=== PATIENT | male | born 1960 | race Hispanic/Latino ===

== ENCOUNTER 2020-02-08 14:25 | Inpatient (IN) | payer BC, OTHER ==
[2020-02-07 19:07] VITALS: BP 157/91
[~2020-02-08] VITALS: Ht 180.3 cm; Wt 68.9 kg
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
[2020-02-08] MEDS ORDERED: PIPER-TAZ 3.375 GM 50 ML IV ONE (15:30)
--- NOTE | 2020-02-08 15:31 | Emergency Department Note ---
History of Present Illnes History of Present Illness Chief Complaint: Extremity Trauma/Pain History of Present Illness This is a 59 year old male . Historian: Patient Arrival Mode: Car Tile Conduit Layer Required: No Onset (how long ago): day(s) (3) Location: right foot Quality: dull ache Radiation: non-radiation Severity: moderate Onset quality: sudden Duration (how long): day(s) (3) Timing of current episode: constant Progression: worsening Chronicity: new Relieving factors: none Exacerbating factors: none Associated symptoms: denies other symptoms, other Treatments prior to arrival: none (DEVIKA ROLAND NP) Past Medical/Family History Physician Review I have reviewed the patient's past medical and family history. Any updates have been documented here. (DEVIKA ROLAND NP) Past Medical History Recent Fever: No Clinical Suspicion of Infectio: Yes New/Unexplained Change in Ment: No Past Medical History: Hypertension, Diabetes, Kidney Stones Past Surgical History: None (DEVIKA ROLAND NP) Social History Smoking Cessation: Former smoker Alcohol Use: Occasional Any Illegal Drug Use: No TB Exposure/Symptoms: No Physically hurt or threatened: No (DEVIKA ORLAND NP) Other Last Tetanus: unknown Any Pre-Existing Lines (PICC,: No Is patient up to date on immun: Yes Last Flu: none Last Pneumovax: none (DEVIKA ROLAND NP) Review of Systems Review of Systems Constitutional: no symptoms EENTM: no symptoms Cardiovascular: no symptoms Respiratory: no symptoms Gastrointestinal: no symptoms Genitourinary: no symptoms Musculoskeletal: no symptoms Neurological: no symptoms Psychological: no symptoms Endocrine: no symptoms Hematological/Lymphatic: no symptoms Review of other systems Rt foot with multiple ulcers noted (DEVIKA ROLAND NP) Physical Exam Related Data Allergies: Coded Allergies: No Known Allergies (Unverified , 02/08/20) Triage Vital Signs Vital Signs Date Time Temp Pulse Resp B/P (MAP) Pulse Ox O2 Delivery O2 Flow Rate FiO2 02/08/20 14:59 98.1 106 16 166/86 95 (DEVIKA ROLAND NP) Physical Exam CONSTITUTIONAL Constitutional: well-developed, well-nourished HENT HENT: normocephalic, atraumatic, oropharynx clear/moist, nose normal HENT L/R: left ext ear normal, right ext ear normal EYES Eyes: PERRL, conjunctivae normal NECK Neck: ROM normal PULMONARY Pulmonary: effort normal, breath sounds normal CARDIOVASCULAR Cardiovascular: regular rhythm, heart sounds normal, capillary refill normal, normal rate GASTROINTESTINAL Abdominal: soft, nontender, bowel sounds normal GENITOURINARY Genitourinary: exam deferred SKIN Skin: warm, dry, lesion (right heel ulcer, right bottom of foot pad ulcer and ulcer to right lateral aspect of foot that is oozing) MUSCULOSKELETAL Musculoskeletal: ROM normal NEUROLOGICAL Neurological: alert, oriented x 3, no gross motor or sensory deficits PSYCHOLOGICAL Psychological: mood/affect normal, judgement normal (DEVIKA ROLAND NP) Results Laboratory Lab results reviewed: Yes (DEVIKA ROLAND NP) Imaging Imaging results reviewed: Yes (DEVIKA ROLAND NP) Procedures 12 Lead ECG Interpretation Tile Conduit Layer: Interpreted by ED physician Date: February 08, 2020 Time: 15:11 Prior WEIGH BOX TENDER tracings: reviewed Rhythm: sinus tachycardia Clinical Impression: normal ECG (DEVIKA ROLAND NP) Critical Care Time Subsequent provider I assumed direction of critical care for this patient from another provider of my specialty. (DEVIKA ROLAND NP) Assessment & Plan Reassessment Reassessment PATIENT SENT FROM DR FREEDMAN'S OFFICE WITH A NOTE TO ADMIT TO DR WILBURN. (DEVIKA ROLAND NP) Assessment & Plan Final Impression: (1) Diabetic ulcer of left foot Assessment & Plan XRAY TO R/O OSTEO BLOOD WORK TO R/O INFECTION ALL RESULTS DISCUSSED WITH DR GALLOWAY WHO IS SPEAKING TO DR WILBURN ADMISSION ORDERS WRITTEN (DEVIKA ROLAND NP) Depart Disposition: ADMITTED Last Vital Signs Date Time Temp Pulse Resp B/P (MAP) Pulse Ox O2 Delivery O2 Flow Rate FiO2 02/08/20 14:59 98.1 106 16 166/86 95 (DEVIKA ROLAND NP) Medications in the ED Piperacillin Sod/ Tazobactam Sod 50 ml @ 50 mls/hr ONCE ONCE IV ; Start 02/08/20 at 15:30; Stop 02/08/20 at 16:29 Vancomycin HCl 250 ml @ 167 mls/hr ONCE ONCE IV ; Start 02/08/20 at 16:30; Stop 02/08/20 at 17:59 (DEVIKA ROLAND NP) Physician Attestation Provider Attestation The patient's history, exam findings, diagnostics, and a summary of any interven tions or procedures was reviewed in detail with our PATRICIA. I personally interviewed and examined the patient, and I have reviewed and agree with the HPI andexam. My personal exam shows 3 ulcers on left foot - 1 at plantar surface of pads at MTP of 3rd and 4th toes ~4cm, 1 on heel ~4cm, and 2 cm ulceration lateral foot at about the 5th mid-MT. I confirm the diagnosis as documented by the PATRICIA. I have reviewed and agree with the care plan articulated in the disposition section. (CORTNEY GALLOWAY MD) DEVIKA ROLAND NP February 08, 2020 15:31 CORTNEY GALLOAWY MD February 08, 2020 17:25
[2020-02-08 15:44] LABS: BASOPHILS # (AUTO) 0.1 (0.0-0.1); BASOPHILS % 0.5 % (0.0-1.0); EOSINOPHILS % 0.2 % (0.0-6.0); HEMATOCRIT 30.9 % (38.2-49.6); HEMOGLOBIN 9.7 g/dL (14.0-18.0); LYMPHOCYTES # (AUTO) 1.2 (1.0-3.2); LYMPHOCYTES % 5.9 % (18.0-39.1); MEAN CORPUSCULAR HEMOGLOBIN 26.6 pg (28-32); MEAN CORPUSCULAR HGB CONC 31.4 g/dL (31-35); MEAN CORPUSCULAR VOLUME 84.7 fL (81-99); MONOCYTES # (AUTO) 1.2 (0.2-0.8); MONOCYTES % 6.1 % (4.4-11.3); NEUTROPHILS # (AUTO) 16.8 (2.1-6.9); NEUTROPHILS % 86.4 % (38.7-80.0); PLATELET COUNT 500 x10e3/uL (140-360); RED BLOOD COUNT 3.65 x10e6/uL (4.3-5.7); RED CELL DISTRIBUTION WIDTH 14.7 % (11.7-14.4)
--- NOTE | 2020-02-08 15:46 | Diagnostic Imaging Report ---
EXAMINATION: CHEST SINGLE (PORTABLE) INDICATION: Foot ulcer COMPARISON: None FINDINGS: LINES/TUBES:None LUNGS:The lungs are well-inflated. No focal consolidation or pulmonary edema. PLEURA:No pleural effusion or pneumothorax. MEDIASTINUM:The cardiomediastinal silhouette appears normal in size and shape. BONES/SOFT TISSUES:No acute osseous injury. ABDOMEN:No free air under the diaphragm. IMPRESSION: No focal pneumonia or pulmonary edema. Signed by: Venu Guy MD on 02/08/2020 3:42 PM
--- NOTE | 2020-02-08 15:47 | Diagnostic Imaging Report ---
EXAMINATION: FOOT LEFT COMPLETE INDICATION: Foot ulcer COMPARISON: None FINDINGS: Soft tissue swelling and ulceration along the lateral aspect of the midfoot. No underlying acute osseous injury or specific radiographic evidence of osteomyelitis. Minimal Achilles enthesopathy. IMPRESSION: Soft tissue ulceration along the lateral aspect of the midfoot without underlying acute osseous injury or specific radiographic evidence of osteomyelitis. Signed by: Venu Guy MD on 02/08/2020 3:43 PM
[2020-02-08 15:59] LABS: ALANINE AMINOTRANSFERASE 79 IU/L (0-55); ALBUMIN/GLOBULIN RATIO 0.3 (0.8-2.0); ALKALINE PHOSPHATASE 389 IU/L (40-150); ANION GAP 14.6 mmol/L (8-16); BLOOD UREA NITROGEN 8 mg/dL (7-26); BUN/CREATININE RATIO 10 (6-25); CALCIUM 8.6 mg/dL (8.4-10.2); CARBON DIOXIDE 36 mmol/L (22-29); CHLORIDE 87 mmol/L (98-107); CREATINE KINASE 66 IU/L (30-200); CREATININE, SERUM 0.77 mg/dL (0.72-1.25); EST GLOMERULAR FILTRATION RATE > 60 ML/MIN (60-); GLUCOSE 115 mg/dL (74-118); SODIUM 135 mmol/L (136-145)
[2020-02-08 16:01] LABS: POTASSIUM 2.6 mmol/L (3.5-5.1)
[2020-02-08] MEDS ORDERED: POTASSIUM CHLORIDE 20 MEQ TAB CR PO STA (16:26)
[2020-02-08] MEDS ORDERED: VANCOMYCIN 1GM/NS 250 ML 250 ML IV ONE (16:30)
[2020-02-08] MEDS ORDERED: KCL 20MEQ/.9 SOD CHL 1,000 ML IV ONE ×2 (16:30→17:15)
[2020-02-08 16:55] LABS: INR 1.07; PROTHROMBIN TIME 14.6 seconds (11.9-14.5)
[2020-02-08 17:03] LABS: PARTIAL THROMBOPLASTIN TIME 46.2 seconds (23.8-35.5)
[2020-02-08] MEDS ORDERED: ONDANSETRON HCL INJ 2MG/ML 2ML 2 MG/ML VIAL IV PRN (17:15)
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
--- NOTE | 2020-02-08 19:07 | NUR ---
RECEIVED PATIENT TO ROOM FROM ED. PATIENT A&OX3. NO PAIN REPORTED. NO S&S OF DISTRESS NOTED. LUNG SOUNDS CLEAR. BOWEL SOUNDS ACTIVE. L FOOT REDNESS AND MULTIPLE ULCERS NOTED. MD MONTALVO TO SEE PATIENT KOFFI FOR ORDERS. BILATERAL AC 18G IV ASYMPTOMATIC, INTACT, AND PATENT. PATIENT ORIENTED TO ROOM. NO S&S OF DISTRESS NOTED. BED LOCKED IN LOWEST POSITION, SIDE RAILS UPX2, CALL LIGHT IN REACH.
[2020-02-08 19:10] VITALS: BP 157/91
--- NOTE | 2020-02-08 20:00 | NUR ---
SPOKE WITH HUMBERTO ROSALES ABOUT TEMP OF 100.7, DOWN TO 100.1, NO NEW ORDERS FOR FEVER AT THIS TIME.
[2020-02-08] MEDS ORDERED: TRULICITY0.75 MG/0. SQ (20:08)
[2020-02-08] MEDS ORDERED: LOSARTAN POTAS100 MG PO (20:08)
[2020-02-08] MEDS ORDERED: SYNJARDY XR 121 EACH PO (20:08)
[2020-02-08] MEDS ORDERED: NOVOLOG MI100 UNIT/1 SC (20:08)
[2020-02-08] MEDS ORDERED: LIPITOR20 MG PO (20:08)
[2020-02-08 20:58] VITALS: BP 157/91
[2020-02-08] MEDS ORDERED: COLLAGENASE 5 GM TUBE TOP SCH (21:00)
[2020-02-08] MEDS ORDERED: NON-FORMULARY MEDICATION (Dulaglutide (Trulicity) 0.75 MG) SQ SCH (22:15)
[2020-02-08] MEDS: PIPER-TAZ 3.375 GM 50 ML IV SCH (22:55)
[2020-02-09] VITALS (7 sets, daily range): BP systolic 141–166; BP diastolic 73–85
[2020-02-09 00:05] LABS: CREATINE KINASE MB 0.6 ng/mL (0-5.0)
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
--- NOTE | 2020-02-09 01:33 | NUR ---
SPOKE WITH HUMBERTO KENT CONCERNING PATIENT'S TEMPERATURE OF 101.7. ICE PACKS ALREADY APPLIED. NEW ORDER FOR TYLENOL RECEIVED.
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
[2020-02-09] MEDS: ACETAMINOPHEN 325 MG TAB PO PRN (01:55)
[2020-02-09] MEDS: VANCOMYCIN 1GM/NS 250 ML 250 ML IV SCH ×2 (02:30→14:30)
[2020-02-09] MEDS: PIPER-TAZ 3.375 GM 50 ML IV SCH ×4 (05:31→23:03)
[2020-02-09 07:01] LABS: BASOPHILS # (AUTO) 0.1 (0.0-0.1); BASOPHILS % 0.4 % (0.0-1.0); EOSINOPHILS % 0.1 % (0.0-6.0); HEMATOCRIT 25.1 % (38.2-49.6); HEMOGLOBIN 7.9 g/dL (14.0-18.0); LYMPHOCYTES # (AUTO) 1.3 (1.0-3.2); LYMPHOCYTES % 8.4 % (18.0-39.1); MEAN CORPUSCULAR HEMOGLOBIN 26.6 pg (28-32); MEAN CORPUSCULAR HGB CONC 31.5 g/dL (31-35); MEAN CORPUSCULAR VOLUME 84.5 fL (81-99); MONOCYTES # (AUTO) 1.3 (0.2-0.8); MONOCYTES % 7.9 % (4.4-11.3); NEUTROPHILS % 81.8 % (38.7-80.0); PLATELET COUNT 423 x10e3/uL (140-360); RED BLOOD COUNT 2.97 x10e6/uL (4.3-5.7)
[2020-02-09 07:20] LABS: ALANINE AMINOTRANSFERASE 52 IU/L (0-55); ALBUMIN 1.5 g/dL (3.5-5.0); ALBUMIN/GLOBULIN RATIO 0.3 (0.8-2.0); ALKALINE PHOSPHATASE 338 IU/L (40-150); ANION GAP 14.8 mmol/L (8-16); BLOOD UREA NITROGEN 10 mg/dL (7-26); BUN/CREATININE RATIO 14 (6-25); CALCIUM 7.8 mg/dL (8.4-10.2); CARBON DIOXIDE 26 mmol/L (22-29); CHLORIDE 97 mmol/L (98-107); CREATININE, SERUM 0.71 mg/dL (0.72-1.25); EST GLOMERULAR FILTRATION RATE > 60 ML/MIN (60-); GLUCOSE 122 mg/dL (74-118); SODIUM 135 mmol/L (136-145)
[2020-02-09 07:23] LABS: POTASSIUM 2.8 mmol/L (3.5-5.1)
--- NOTE | 2020-02-09 07:25 | NUR ---
PATIENT IN BED RESTING WITH NO S/S OF DISTRESS. DRESSING TO LEFT FOOT WITH MODERATE AMOUNT OF DRAINAGE. BED IN LOWER POSITION, CALL LIGHT AT REACH.
[2020-02-09 07:31] LABS: CREATINE KINASE 40 IU/L (30-200)
[2020-02-09 08:00] LABS: CHOL/HDL RATIO 5.2 (3.9-4.7); MAGNESIUM 2.3 MG/DL (1.3-2.1); PHOSPHORUS 3.6 MG/DL (2.3-4.7)
[2020-02-09] MEDS: INSULIN ASPART 70/30 100 UNITS/ML VIAL SC SCH ×2 (08:00→17:00)
--- NOTE | 2020-02-09 08:17 | Diagnostic Imaging Report ---
EXAMINATION: CHEST SINGLE (PORTABLE) INDICATION: Hypokalemia, foot injury COMPARISON: Chest radiograph 02/08/2020 FINDINGS: LINES/TUBES:EKG leads overlie the chest. LUNGS:The lungs are well-inflated. No focal consolidation or pulmonary edema. PLEURA:No pleural effusion or pneumothorax. MEDIASTINUM:The cardiomediastinal silhouette appears normal in size and shape. BONES/SOFT TISSUES:No acute osseous injury. ABDOMEN:No free air under the diaphragm. IMPRESSION: No focal pneumonia or pulmonary edema. Signed by: Venu Guy MD on 02/09/2020 8:14 AM
[2020-02-09 08:20] LABS: THYROID STIMULATING HORMONE 0.776 uIU/mL (0.350-4.940)
[2020-02-09] MEDS ORDERED: EMPAGLIFLOZIN PO SCH (09:00)
[2020-02-09] MEDS ORDERED: [UNRECOGNIZED DRUG - OTHER] PO SCH (09:00)
[2020-02-09] MEDS ORDERED: SYNJARDY PO SCH (09:00)
[2020-02-09] MEDS ORDERED: METFORMIN HCL PO SCH (09:00)
[2020-02-09] MEDS ORDERED: DEXTROSE 50% SYRINGE 50 ML IV PRN (09:45)
[2020-02-09] MEDS: LOSARTAN POTASSIUM 100 MG TAB PO SCH (09:57)
[2020-02-09] MEDS: ATORVASTATIN 20 MG TAB PO SCH (09:58)
[2020-02-09] MEDS: MULTIVITAMINS/MINERALS TAB PO SCH (09:58)
[2020-02-09] MEDS: ASCORBIC ACID 500 MG TAB PO SCH ×2 (09:58→17:20)
[2020-02-09] MEDS: MAGNESIUM OXIDE 400 MG TAB PO SCH ×2 (09:58→17:20)
[2020-02-09] MEDS: ZINC SULFATE 220 MG CAP PO SCH (09:58)
[2020-02-09] MEDS: OYST-CAL-D 500MG TABLET PO SCH ×2 (09:58→17:20)
[2020-02-09] MEDS ORDERED: HYDRALAZINE HCL 20 MG/ML VIAL IV PRN (10:00)
[2020-02-09] MEDS ORDERED: ACETAMINOPHEN/CODEINE 300MG - 30MG TAB PO PRN (10:00)
[2020-02-09] MEDS ORDERED: POTASSIUM CHLORIDE 20MEQ/100ML 300 ML IV ONE (10:15)
--- NOTE | 2020-02-09 10:18 | Diagnostic Imaging Report ---
EXAMINATION: CHEST XRAY LINE PLACEMENT INDICATION: Line placement COMPARISON: Chest radiograph 02/09/2020 FINDINGS: LINES/TUBES:Interval placement of right PICC line terminating at the superior vena cava. LUNGS:The lungs are well-inflated. No focal consolidation or pulmonary edema. Mild bibasilar subsegmental atelectasis. PLEURA:No pleural effusion or pneumothorax. MEDIASTINUM:The cardiomediastinal silhouette appears normal in size and shape. BONES/SOFT TISSUES:No acute osseous injury. ABDOMEN:No free air under the diaphragm. IMPRESSION: Right PICC line terminates at the SVC. Signed by: Venu Guy MD on 02/09/2020 10:14 AM
[2020-02-09] MEDS: COLLAGENASE 5 GM TUBE TOP SCH (10:35)
[2020-02-09] MEDS ORDERED: SODIUM CHLORIDE 0.9% 1000ML 1,000 ML ONE (10:58)
[2020-02-09] MEDS: INSULIN LISPRO 100 UNIT/1 ML 3ML VIAL SQ SCH ×3 (11:30→20:09)
--- NOTE | 2020-02-09 11:45 | NUR ---
SPOKE WITH MD REGARDING ABNORMAL LAB RESULT, NEW ORDERS RECEIVED.
--- NOTE | 2020-02-09 14:14 | Progress Note ---
DATE: 02/09/2020 SUBJECTIVE: The patient is seen at bedside when he spiked the fever last night. OBJECTIVE: VITAL SIGNS: Afebrile. Spiked a fever of 101.7, now at 98.5 with a pulse rate 92, respirations 20, blood pressure 141/77, and O2 saturation 97%. EXTREMITIES: Has multiple ulcerations to the left lower extremity down to muscle and tendon, possibly down to bone. They are measuring approximately 4 to 5 cm in diameter to the plantar aspect of the right forefoot aspect. Also, more of the same measurements to the heel x2 and also lateral aspect of the left foot measuring 2.5 to 3 cm in diameter with necrosis noted down to tendon and possibly bone with some drainage noted. Pedal pulses are palpable, but diminished on this date. LABORATORY DATA: Dropping little bit from 19 to 15.8. INR 1.07 with a blood glucose of 109. Low potassium. ASSESSMENT: Possible osteomyelitis with multiple grade 3 and 4 ulcerations with cellulitis. PLAN: Sharp excisional debridement of all ulcers was performed down to muscle, tendon, and very close to bone. Devitalized tissue sharply excised until good some viable tissue was achieved. Deep cultures were taken of some purulent drainage obtained after the debridement of the ulcer, which was tracking to the dorsal lateral aspect of the left foot. Cultures were taken for an aerobic and anaerobic growth. Following the excisional sharp debridement, sterile dressing was applied with Santyl followed by diluted wet-to-dry Betadine. We will continue IV antibiotics such as Zosyn and vancomycin. We will repeat CBC tomorrow in a.m. The patient understands we will treat conservatively for now. No guarantees can be given. CHAPARRO Ng/JAH /[id number]
--- NOTE | 2020-02-09 15:04 | NUR ---
PATIENT AMBULATED IN THE ROOM WITH PHYSICAL THERAPY. SITTING UP IN BED TALKING TO FAMILY MEMBER VISITING. CALL LIGHT AT REACH.
--- NOTE | 2020-02-09 15:15 | NUR ---
PATIENT OFF UNIT TO RADIOLOGY.
--- NOTE | 2020-02-09 16:05 | NUR ---
PATIENT BACK TO UNIT FROM RADIOLOGY.
--- NOTE | 2020-02-09 16:17 | Diagnostic Imaging Report ---
TECHNIQUE: Magnetic resonance imaging of the LEFT foot was performed WITHOUT injected contrast. HISTORY: Pain COMPARISON: None available. DISCUSSION: Scattered soft tissue ulcerations including the lateral forefoot and plantar hindfoot. Abnormal signal within the subcutaneous tissues and within the musculature of the foot. Possible areas of signal void involving the superficial tissues of the hindfoot which may reflect gas. Discrete evaluation for abscess is limited without intravenous contrast. T1 replacement and bone marrow edema involving the calcaneus. The remainder of the bone marrow signal is essentially unremarkable with mild reactive signal change. IMPRESSION: Multiple soft tissue ulcerations of the foot. Osteomyelitis of the calcaneus. Possible multilobulated abscess of the hindfoot with soft tissue gas. Postcontrast imaging may be of benefit to further delineate if patient can receive gadolinium. Signed by: Dr. Burton Reyna M.D. on 02/09/2020 4:14 PM
--- NOTE | 2020-02-09 16:37 | NUR ---
Patient will need a RW for home use if he will remain NWB on LLE until D/C. Addendum: 02/09/20 at 1638 by Chris Valente PT Amended: Links added.
[2020-02-09 17:02] LABS: CREATINE KINASE 33 IU/L (30-200)
--- NOTE | 2020-02-09 19:00 | NUR ---
RECEIVED PATIENT IN BEDSIDE SHIFT REPORT. PATIENT RESTING IN BED. NO PAIN REPORTED. NO S&S OF DISTRESS NOTED. BED LOCKED IN LOWEST POSITION, SIDE RAILS UPX2, CALL LIGHT IN REACH.
--- NOTE | 2020-02-09 19:50 | NUR ---
REMOVED R AC 18G IV. CATHETER TIP INTACT. PRESSURE DRESSING APPLIED.
[2020-02-10] VITALS (9 sets, daily range): BP systolic 113–161; BP diastolic 59–90
--- NOTE | 2020-02-10 02:35 | NUR ---
VANC TROUGH SENT TO LAB AT THIS TIME. Addendum: 02/10/20 at 0330 by Brook Cramer RN SPOKE WITH SPRAY OPERATOR FOR VANC TROUGH RESULTS, TECH STATED THEY HAVE IT AND WILL DO IT "SOON."
[2020-02-10] MEDS: PIPER-TAZ 3.375 GM 50 ML IV SCH ×2 (04:12→10:00)
[2020-02-10] MEDS: VANCOMYCIN 1GM/NS 250 ML 250 ML IV SCH (04:49)
[2020-02-10] MEDS: ACETAMINOPHEN 325 MG TAB PO PRN ×2 (05:01→20:34)
[2020-02-10 05:28] LABS: BASOPHILS # (AUTO) 0.1 (0.0-0.1); BASOPHILS % 0.5 % (0.0-1.0); EOSINOPHILS # (AUTO) 0.1 (0.0-0.4); EOSINOPHILS % 0.5 % (0.0-6.0); HEMATOCRIT 24.9 % (38.2-49.6); HEMOGLOBIN 7.6 g/dL (14.0-18.0); LYMPHOCYTES # (AUTO) 1.3 (1.0-3.2); LYMPHOCYTES % 9.8 % (18.0-39.1); MEAN CORPUSCULAR HGB CONC 30.5 g/dL (31-35); MEAN CORPUSCULAR VOLUME 85.3 fL (81-99); MONOCYTES # (AUTO) 1.1 (0.2-0.8); MONOCYTES % 8.4 % (4.4-11.3); NEUTROPHILS # (AUTO) 10.5 (2.1-6.9); NEUTROPHILS % 79.4 % (38.7-80.0); PLATELET COUNT 335 x10e3/uL (140-360); RED BLOOD COUNT 2.92 x10e6/uL (4.3-5.7); RED CELL DISTRIBUTION WIDTH 15.1 % (11.7-14.4)
[2020-02-10 05:38] LABS: ALANINE AMINOTRANSFERASE 39 IU/L (0-55); ALBUMIN 1.4 g/dL (3.5-5.0); ALBUMIN/GLOBULIN RATIO 0.3 (0.8-2.0); ALKALINE PHOSPHATASE 396 IU/L (40-150); ANION GAP 11.3 mmol/L (8-16); BLOOD UREA NITROGEN 13 mg/dL (7-26); BUN/CREATININE RATIO 17 (6-25); CALCIUM 7.8 mg/dL (8.4-10.2); CARBON DIOXIDE 24 mmol/L (22-29); CHLORIDE 102 mmol/L (98-107); CREATININE, SERUM 0.75 mg/dL (0.72-1.25); EST GLOMERULAR FILTRATION RATE > 60 ML/MIN (60-); GLUCOSE 87 mg/dL (74-118); MAGNESIUM 2.1 MG/DL (1.3-2.1); POTASSIUM 3.3 mmol/L (3.5-5.1); SODIUM 134 mmol/L (136-145)
[2020-02-10] MEDS: INSULIN LISPRO 100 UNIT/1 ML 3ML VIAL SQ SCH ×4 (07:30→20:48)
[2020-02-10] MEDS: ATORVASTATIN 20 MG TAB PO SCH (09:55)
[2020-02-10] MEDS: OYST-CAL-D 500MG TABLET PO SCH ×2 (09:55→17:00)
[2020-02-10] MEDS: ASCORBIC ACID 500 MG TAB PO SCH ×2 (09:55→17:00)
[2020-02-10] MEDS: MAGNESIUM OXIDE 400 MG TAB PO SCH ×2 (09:55→17:00)
[2020-02-10] MEDS: LOSARTAN POTASSIUM 100 MG TAB PO SCH (09:55)
[2020-02-10] MEDS: INSULIN ASPART 70/30 100 UNITS/ML VIAL SC SCH ×2 (09:55→17:01)
[2020-02-10] MEDS: ZINC SULFATE 220 MG CAP PO SCH (09:55)
[2020-02-10] MEDS: MULTIVITAMINS/MINERALS TAB PO SCH (09:55)
[2020-02-10] MEDS: COLLAGENASE 5 GM TUBE TOP SCH (09:56)
[2020-02-10] MEDS ORDERED: POTASSIUM CHLORIDE 20 MEQ TAB CR PO NR (12:30)
[2020-02-10] MEDS: CEFTRIAXONE SOD 1 GM/NS 50 ML 50 ML IV SCH (14:52)
--- NOTE | 2020-02-10 19:01 | Progress Note ---
DATE: 02/10/2020 SUBJECTIVE: The patient is seen at bedside, doing better, decreased discomfort to the right lower extremity. Does relate that he still some peaking some fevers. OBJECTIVE: VITAL SIGNS: Temperature 99.9, pulse rate 96, respirations 20, blood pressure 153/86, and O2 saturation 96%. EXTREMITIES: Ulcerations to the right lower extremity looking better, still has a grade 3 ulceration plantar aspect of the right heel, dorsal lateral aspect of left foot 4 to 5 cm in diameter to the heel, 2.5 to 3 cm in diameter at dorsal lateral aspect of left foot with a grade 2 ulcer plantar aspect, metatarsophalangeal joints measuring 2.5 to 3 cm in diameter, some necrosis noted down the subcutaneous tissue. Still some swelling and cellulitis noted up to the mid calf area with pedal pulses palpable, but diminished. LABORATORY DATA: Labs show white blood cell count dropping to 13.9 from a peak of 19.45. ASSESSMENT: Possible osteomyelitis, left foot specifically the left heel with multiple grade 3 and 2 ulcerations left lower extremity cellulitis and diabetic neuropathy. PLAN: We will continue IV antibiotics such as ceftriaxone, IV piggyback. Cultures came back for Staph aureus. Ulcerations to the left lower extremity were debrided x3 down to muscle and tendon both to the heel and the dorsal lateral aspect left foot. Necrotic tissue was sharply excised via the use of a sterile #10 blade until good viable bleeding tissue achieved. Ulceration to the plantar aspect of the left foot was also debrided down to the subcutaneous tissue. Sterile dressing was applied with Santyl followed by diluted wet-to-dry. We will continue offloading. We will continue to treat conservatively for now. Repeat CBC in a.m. tomorrow. CHAPARRO Ng/JAH /[id number]
--- NOTE | 2020-02-10 20:00 | NUR ---
RECEIVED REPORT FROM 7AM NURSE, PATIENT RESTING IN BED, NO COMPLAINTS VOICED AT THIS TIME, CALL LIGHT IN REACH. WILL CONTINUE TO MONITOR.
--- NOTE | 2020-02-10 20:48 | NUR ---
ASSUMED CARE OF THIS PATIENT THIS AM. THE PATIENT HAS A PICC LINE THAT FLUSHED WELL WITH NS AND IS POSITIONAL. HE HAS A LEFT FOOT WOUND WHICH DR. MONTALVO DEBRIDED AT THE BEDSIDE THIS EVENING. THE WOUNDS ARE X3, ON THE BALL OF THE FOOT, ON THE HEEL OF THE FOOT AND LATERALLY THERE IS A 1 INCH IN DIAMETER APPROX. 4-5 CM DEEP WOUND. SANTYL AND A BETADINE WET TO DRY DRESSING IS APPLIED Q SHIFT. THE PATIENT COMPLAINS OF NO PAIN AND IS COMPLIANT WITH NWB WITH PT. HE IS ON ROCEPHIN Q12 HOURS NOW, THE VANCOMYCIN AND ZOSYN HAVE BEEN D/C'D. THE PATIENT BEGAN A FEVER OF 99.[address] MONTALVO AWARE OF [facility] BLOOD CULTURE.
--- NOTE | 2020-02-10 20:53 | NUR ---
BEDTIME SNACK GIVEN.
--- NOTE | 2020-02-10 23:35 | NUR ---
PATIENT PLACE THE CALL LIGHT ON, WENT INTO THE ROOM AND PATIENT STATED SAYING, WHO DO I NEED TO TALK WITH CONCERNING SERVICES, i QUESTION THE PATIENT AND HE STATED, "I'M NOT FEELING WELL, I FEEL MY BLOOD SUGAR HAS DROP", EXPLAIN TO PATIENT THAT HE JUST NEEDED TO TELL ME THAT INFORMATION SO I COULD CHECK HIS BLOOD SUGAR. BLOOD SUGAR CHECK 63MG/DL, WENT TO GET JUICE AND SUGAR, PATIENT DRANK ALL, BUT I NOTICED THAT HE DIDN'T DRINK HIS MILK THAT I'VE GIVEN HIM FOR A BEDTIME SNACK. QUESTION PATIENT WHY HE DIDN'T FINISH HIS SNACK AND HE STATED THAT HE WAS SAVING THE MILK IN CASE HE NEEDED IT FOR LATER. CHECK BLOOD SUGAR AGAIN AND RESULTS 68MG/DL EXPLAINED TO PATIENT THAT THE MILK WILL HELP TO INCREASE HIS BLOOD SUGAR AND HE REFUSED TO DRINK THE MILK AND STATED HE WILL SAVE IT LATER. PATIENT STATED AFTER 20MINUTES THAT HE WAS STARTING TO FEEL BETTER, THAT HIS SHAKINESS WAS GONE, NO SWEATING AND HIS VISION WAS NO LONGER BLURRY. WILL CONTINUE TO MONITOR.
[2020-02-11] VITALS (9 sets, daily range): BP systolic 120–166; BP diastolic 68–84
--- NOTE | 2020-02-11 02:00 | NUR ---
PATIENT WENT THE BATHROOM WITHOUT CALLING FOR ASSISTANCE, HE PLACE THE EMERGENCY CALL LIGHT ON AND WHEN THE TECH WENT IN TO HELP HE REFUSED, SHE ASKED AGAIN AND HE REFUSE, NURSE WENT IN TO QUESTION IF HE NEEDED ASSISTANCE AND HE REFUSED, STATED HE DIDN'T NEED ANY HELP AND DOESN'T KNOW HOW THE LIGHT CAME ON. PATIENT USING WALKER TO ASSIST, GOING TO BED AND HE QUESTION NURSE WHAT ABOUT THE THING HERE AND HE STARTED TO RAISE UP THE TELEMETRY BOX, NURSE QUESTION WHAT'S WRONG AND HE RAISED HIS VOICE AND SAID THIS HERE IS WHAT'S WRONG. NURSE DIDN'T SEE THAT TWO LINES HAD CAME UNDONE AND EXPLAINED TO PATIENT THAT THERE WAS NO NEED TO RAISE HIS VOICE THAT WHAT HE NEEDS I WILL TAKE CARE OF IT, I QUESTIONED PATIENT IF HE WANTED ANOTHER NURSE DUE TO SINCE THE BEGINNING OF THE SHIFT, PATIENT HAS BEEN NONCOMPLIANT WITH THE NURSE AND TECH AND TALKING RUDE. PATIENT SAID NO HE DOESN'T WANT ANOTHER NURSE, JUST THAT WE NEED TO GET ON THE SAME LEVEL, TELEMETRY BOX CHECK AND LINES ATTACHED TO THE PADS. WILL CONTINUE TO MONITOR. DRESSING TO HIS LEFT FOOT REMAIN INTACT. PATIENT WAS ASKED MORE THAT 3 TIMES BY THE NURSE SYSTEM SAFETY ENGINEER IF HE WANTED A BATH AND HE HAS REFUSED EACH TIME.
[2020-02-11 07:02] LABS: BASOPHILS # (AUTO) 0.1 (0.0-0.1); BASOPHILS % 0.6 % (0.0-1.0); EOSINOPHILS # (AUTO) 0.1 (0.0-0.4); EOSINOPHILS % 0.7 % (0.0-6.0); HEMATOCRIT 25.5 % (38.2-49.6); LYMPHOCYTES # (AUTO) 1.3 (1.0-3.2); LYMPHOCYTES % 11.9 % (18.0-39.1); MEAN CORPUSCULAR HEMOGLOBIN 26.9 pg (28-32); MEAN CORPUSCULAR HGB CONC 31.4 g/dL (31-35); MEAN CORPUSCULAR VOLUME 85.9 fL (81-99); NEUTROPHILS # (AUTO) 8.4 (2.1-6.9); NEUTROPHILS % 76.9 % (38.7-80.0); PLATELET COUNT 419 x10e3/uL (140-360); RED BLOOD COUNT 2.97 x10e6/uL (4.3-5.7); RED CELL DISTRIBUTION WIDTH 15.2 % (11.7-14.4)
[2020-02-11 07:18] LABS: % IRON SATURATION 6 % (15-50); ALANINE AMINOTRANSFERASE 36 IU/L (0-55); ALBUMIN 1.4 g/dL (3.5-5.0); ALBUMIN/GLOBULIN RATIO 0.3 (0.8-2.0); ALKALINE PHOSPHATASE 500 IU/L (40-150); ANION GAP 10.4 mmol/L (8-16); BLOOD UREA NITROGEN 10 mg/dL (7-26); BUN/CREATININE RATIO 14 (6-25); CALCIUM 7.9 mg/dL (8.4-10.2); CARBON DIOXIDE 25 mmol/L (22-29); CHLORIDE 102 mmol/L (98-107); CREATININE, SERUM 0.69 mg/dL (0.72-1.25); EST GLOMERULAR FILTRATION RATE > 60 ML/MIN (60-); GLUCOSE 85 mg/dL (74-118); IRON 11 ug/dL (65-175); MAGNESIUM 2.1 MG/DL (1.3-2.1); POTASSIUM 3.4 mmol/L (3.5-5.1); SODIUM 134 mmol/L (136-145); TOTAL IRON BINDING CAPACITY 171 ug/dL (261-478); TRANSFERRIN 122 mg/dL (174-364)
--- NOTE | 2020-02-11 07:25 | NUR ---
PATIENT IN BED RESTING WITH EYES CLOSED, NO DISTRESS NOTED. DRESSING INTACT TO LEFT FOOT. BED IN LOWER POSITION, CALL LIGHT AT REACH.
[2020-02-11] MEDS: INSULIN LISPRO 100 UNIT/1 ML 3ML VIAL SQ SCH ×4 (07:30→21:00)
[2020-02-11 07:43] LABS: FERRITIN 187.46 ng/mL (21.81-274.66)
[2020-02-11] MEDS: INSULIN ASPART 70/30 100 UNITS/ML VIAL SC SCH ×2 (08:00→17:10)
[2020-02-11] MEDS: ACETAMINOPHEN 325 MG TAB PO PRN ×2 (09:10→21:15)
[2020-02-11] MEDS: LOSARTAN POTASSIUM 100 MG TAB PO SCH (09:40)
[2020-02-11] MEDS: ASCORBIC ACID 500 MG TAB PO SCH ×2 (09:40→17:10)
[2020-02-11] MEDS: ATORVASTATIN 20 MG TAB PO SCH (09:40)
[2020-02-11] MEDS: MULTIVITAMINS/MINERALS TAB PO SCH (09:40)
[2020-02-11] MEDS: OYST-CAL-D 500MG TABLET PO SCH ×2 (09:40→17:10)
[2020-02-11] MEDS: ZINC SULFATE 220 MG CAP PO SCH (09:40)
[2020-02-11] MEDS: MAGNESIUM OXIDE 400 MG TAB PO SCH ×2 (09:40→17:10)
--- NOTE | 2020-02-11 10:05 | NUR ---
PATIENT NOTED WITH TEMP OF 100.4. PRN TYLENOL GIVEN ORDERED, TEMP RECHECKED WITH THE READING OF 98.3
[2020-02-11] MEDS ORDERED: POTASSIUM CHLORIDE 20 MEQ TAB CR PO NR (10:30)
--- NOTE | 2020-02-11 10:57 | NUR ---
INSURANCE VERIFICATION SPECIALIST IN TO SEE PATIENT, NEW ORDER RECEIVED.
[2020-02-11] MEDS: CEFTRIAXONE SOD 1 GM/NS 50 ML 50 ML IV SCH (12:56)
[2020-02-11] MEDS: COLLAGENASE 5 GM TUBE TOP SCH (14:00)
--- NOTE | 2020-02-11 14:49 | Consultation ---
DATE OF CONSULTATION: Cardiology Consultation HISTORY OF PRESENT ILLNESS: This is a 59-year-old man with a history of diabetes mellitus, peripheral artery disease, hypertension, nephrolithiasis, hyperlipidemia, who was admitted for worsening diabetic foot ulcer. He states that his foot ulcer started as thick callus skin that cracked and bled and then over time developed a foot wound that has been progressively worsening over the last few weeks to days. We have been consulted to assess his vascular status. Recent Doppler shows severe peripheral arterial disease in the tibial vessels. The patient reports significant amount of pain at the site as well. Otherwise, feeling well from a cardiovascular standpoint. No chest pain, shortness of breath, palpitations, or syncope. REVIEW OF SYSTEMS: A 12-point review of system was conducted, is negative except as stated above in the HPI. PAST MEDICAL HISTORY: As stated above in the HPI. PAST SURGICAL HISTORY: Multiple debridements, knee surgery. PAST FAMILY HISTORY: No premature coronary artery disease and cardiac . SOCIAL HISTORY: No illicit drug, alcohol, or tobacco use. ALLERGIES: NO KNOWN DRUG ALLERGIES. MEDICATIONS: See medications reconciliation form. PHYSICAL EXAMINATION: VITAL SIGNS: Temperature is 98.8, heart rate 87, respirations are 20, blood pressure is 120/68, oxygen saturation 97% on room air. GENERAL: Well appearing, well built in no apparent distress. Alert and oriented x3. HEAD: Normocephalic and atraumatic. Eyes, the extraocular muscles intact. Conjunctivae are clear. NECK: No JVD. No bruits. CARDIOVASCULAR: Regular rate and rhythm. LUNGS: Clear to auscultation. ABDOMEN: Soft, nontender, nondistended. EXTREMITIES: There is left foot wound, erythematous, edematous with decreased pulses. IMAGING: MRI of the foot shows osteomyelitis of the calcaneus. Lower extremity arterial Doppler showed severe diffuse disease in the runoff vessels. ASSESSMENT: 1. Peripheral artery disease. 2. Osteomyelitis with diabetic foot wound. 3. Diabetes. 4. Hypertension. 5. Hyperlipidemia. PLAN: We will go ahead and take the patient to the cath lab tech for revascularization to allow for adequate wound healing. Continue antibiotics and local therapy per Podiatry and primary teams. Continue current cardiovascular medications. We will continue to follow along with you. DO XIMENA Perez/MODL /[id number]
--- NOTE | 2020-02-11 15:44 | NUR ---
STOOL SPECIMEN COLLECTED AND SENT TO THE LAB.
[2020-02-11] MEDS: FERROUS SULFATE 325 MG TAB PO SCH (17:10)
--- NOTE | 2020-02-11 19:09 | NUR ---
BED SIDE SHIFT REPORT GIVEN TO ON COMING NURSE.
--- NOTE | 2020-02-11 19:20 | NUR ---
received report from day nurse. patient is resting comfortably in the bed. bed is in the lowest position and call light is within reach. will continue to monitor patient.
--- NOTE | 2020-02-11 22:45 | Progress Note ---
DATE: 02/11/2020 SUBJECTIVE: The patient is seen at bedside, doing better, decreased discomfort to the left lower extremity. Did relate he spiked fever this morning at 100.1, currently at 98.2. OBJECTIVE: VITAL SIGNS: Afebrile, pulse rate 83, respirations 20, blood pressure 127/71, and O2 saturation 97%. EXTREMITIES: Pedal pulses palpable to both the DP and PT. Skin temperature warm to touch. Multiple ulcerations noted, plantar aspect of 2nd, 3rd, and 4th metatarsophalangeal joints down the subcutaneous tissue down to tendon and muscle, lateral aspect left foot measuring 2.5 to 3 cm in diameter and an ulcer measuring more than 5-6 cm in diameter, plantar aspect left heel tracking to bone. LABORATORY DATA: Labs dropping now to 10.93, hemoglobin 8.0 with a platelet count of 419. ASSESSMENT: Possible osteomyelitis with multiple grade 2, grade 3, and grade 4 ulcerations with diabetic neuropathy and cellulitis. PLAN: We will continue IV antibiotics such as ceftriaxone. We will continue local wound care, serial debridements, treat conservatively for now. The patient understands no warrantees or guarantees can be given. CHAPARRO Ng/JAH /[id number]
--- NOTE | 2020-02-11 22:57 | NUR ---
received blood culture results from laboratory. paged to notify of results. awaiting call back.
[2020-02-12] VITALS (8 sets, daily range): BP systolic 110–156; BP diastolic 59–84
[2020-02-12 04:10] LABS: BASOPHILS % 0.4 % (0.0-1.0); EOSINOPHILS # (AUTO) 0.1 (0.0-0.4); EOSINOPHILS % 1.1 % (0.0-6.0); HEMATOCRIT 24.6 % (38.2-49.6); HEMOGLOBIN 7.6 g/dL (14.0-18.0); LYMPHOCYTES # (AUTO) 1.1 (1.0-3.2); LYMPHOCYTES % 11.2 % (18.0-39.1); MEAN CORPUSCULAR HEMOGLOBIN 26.8 pg (28-32); MEAN CORPUSCULAR HGB CONC 30.9 g/dL (31-35); MEAN CORPUSCULAR VOLUME 86.6 fL (81-99); MONOCYTES # (AUTO) 0.9 (0.2-0.8); MONOCYTES % 9.1 % (4.4-11.3); NEUTROPHILS # (AUTO) 7.8 (2.1-6.9); NEUTROPHILS % 77.2 % (38.7-80.0); PLATELET COUNT 421 x10e3/uL (140-360); RED BLOOD COUNT 2.84 x10e6/uL (4.3-5.7); RED CELL DISTRIBUTION WIDTH 15.3 % (11.7-14.4)
[2020-02-12 04:32] LABS: ALANINE AMINOTRANSFERASE 49 IU/L (0-55); ALBUMIN 1.4 g/dL (3.5-5.0); ALBUMIN/GLOBULIN RATIO 0.3 (0.8-2.0); ALKALINE PHOSPHATASE 504 IU/L (40-150); ANION GAP 9.5 mmol/L (8-16); BLOOD UREA NITROGEN 8 mg/dL (7-26); BUN/CREATININE RATIO 12 (6-25); CALCIUM 7.6 mg/dL (8.4-10.2); CARBON DIOXIDE 24 mmol/L (22-29); CHLORIDE 104 mmol/L (98-107); CREATININE, SERUM 0.67 mg/dL (0.72-1.25); EST GLOMERULAR FILTRATION RATE > 60 ML/MIN (60-); GLUCOSE 128 mg/dL (74-118); MAGNESIUM 2.2 MG/DL (1.3-2.1); POTASSIUM 3.5 mmol/L (3.5-5.1); SODIUM 134 mmol/L (136-145)
--- NOTE | 2020-02-12 06:35 | NUR ---
patient is resting in the bed. bed is in the lowest position and call light is within reach. no signs of distress noted.
--- NOTE | 2020-02-12 07:16 | NUR ---
PATIENT IN BED RESTING WITH NO S/S OF DISTRESS. DRESSING DRY AND INTACT TO LEFT FOOT. CALL LIGHT AT REACH.
[2020-02-12] MEDS: INSULIN LISPRO 100 UNIT/1 ML 3ML VIAL SQ SCH ×4 (07:30→21:00)
[2020-02-12] MEDS ORDERED: POTASSIUM CHLORIDE 20 MEQ TAB CR PO ONE (08:00)
[2020-02-12] MEDS: INSULIN ASPART 70/30 100 UNITS/ML VIAL SC SCH ×2 (09:00→17:00)
[2020-02-12] MEDS: ASCORBIC ACID 500 MG TAB PO SCH ×2 (09:32→17:45)
[2020-02-12] MEDS: MAGNESIUM OXIDE 400 MG TAB PO SCH ×2 (09:32→17:45)
[2020-02-12] MEDS: COLLAGENASE 5 GM TUBE TOP SCH (09:32)
[2020-02-12] MEDS: ATORVASTATIN 20 MG TAB PO SCH (09:32)
[2020-02-12] MEDS: MULTIVITAMINS/MINERALS TAB PO SCH (09:32)
[2020-02-12] MEDS: LOSARTAN POTASSIUM 100 MG TAB PO SCH (09:32)
[2020-02-12] MEDS: OYST-CAL-D 500MG TABLET PO SCH ×2 (09:32→17:45)
[2020-02-12] MEDS: ZINC SULFATE 220 MG CAP PO SCH (09:32)
--- NOTE | 2020-02-12 09:52 | Progress Note ---
DATE: 02/12/2020 SUBJECTIVE: The patient is seen at bedside, doing somewhat better, still peaking a fever at 99.6. He is denying any history of chills, nausea, or vomiting. OBJECTIVE: VITALS: Temp of 99.6, respirations 19, pulse rate 88 with a blood pressure 140/77, and O2 saturation 97%. LABORATORY DATA: Labs show white blood cell count 10.15, hemoglobin 7.6, platelet count of 421. Ulcerations down to bone, tendon and still has some pus pockets noted medial aspect of the right and lateral aspect of the right talotibial joint. Cellulitis with grade 3/4 ulceration with possible osteomyelitis. Plan, sharp excisional debridement of the ulcers were carried down to tendon, very close to bone, both to the lateral and plantar aspects of the right foot and heel respectively via sharp excisional debridement and sharp dissection utilizing a sterile 10 blade. Some pus pockets were encountered to the medial and lateral aspects of the right talotibial joint. They were punctured and drained. Still has positive cellulitis up to the ankle joint area with a very swollen left foot when compared to contralateral side. Pedal pulses are palpable to the PT, somewhat diminished to the dorsalis pedis. ASSESSMENT: Grade 3, grade 4 possible osteomyelitis with cellulitis and some pus pockets/abscesses encountered. PLAN: As described above. We will continue IV antibiotics. Continue local wound care with Santyl, followed by diluted wet-to-dry Betadine. The patient will be undergoing an arteriogram today per Dr. Mitchell. CHAPARRO Ng/JAH /[id number]
--- NOTE | 2020-02-12 11:35 | NUR ---
PATIENT AMBULATING IN HALLWAY WITH PHYSICAL THERAPY, NO COMPLAIN VOICED. WILL CONTINUE TO MONITOR.
[2020-02-12] MEDS: CEFTRIAXONE SOD 1 GM/NS 50 ML 50 ML IV SCH (12:30)
--- NOTE | 2020-02-12 14:02 | Progress Note ---
DATE: Cardiology Progress Note SUBJECTIVE: The patient feeling well. Denies any chest pain or shortness of breath. He does report some lower extremity pain. OBJECTIVE: VITAL SIGNS: Temperature is 98.3, heart rate is 92, respirations are 19, oxygen saturation 96% on room air, and blood pressure is 156/84. GENERAL: He is well-appearing, well built, no apparent distress. CARDIOVASCULAR: Regular rate and rhythm. LUNGS: Clear to auscultation. ABDOMEN: Soft, nontender, and nondistended. EXTREMITIES: He has a left foot wound that is wrapped and dressed with diminished pulses. CARDIOVASCULAR MEDICATIONS: Reviewed. LABORATORY DATA: Reviewed. Hemoglobin is 7.6. Creatinine is 0.67. Lower extremity arterial Doppler showed severe diffuse disease in the tibial vessels. ASSESSMENT: 1. Peripheral arterial disease. 2. Osteomyelitis with diabetic foot wound. 3. Diabetes mellitus. 4. Hypertension. 5. Hyperlipidemia. RECOMMENDATIONS: The patient is unable to undergo angiography today due to worm farm laborer scheduling. The patient will be kept n.p.o. after midnight for possible peripheral angiography and intervention tomorrow morning. Continue all other current cardiovascular medications include and continue antibiotic and wound care. DO XIMENA Perez/JAH /[id number]
--- NOTE | 2020-02-12 16:20 | NUR ---
DRESSING CHANGED TO LEFT FOOT ORDERED. BED IN LOWER POSITION, CALL LIGHT AT REACH.
--- NOTE | 2020-02-12 17:19 | NUR ---
Discontinuing PT services since patient is Mod I in functional mobility. Thank you Addendum: 02/12/20 at 1719 by Serafin chen PT Amended: Links added.
--- NOTE | 2020-02-12 17:35 | NUR ---
[id number] sepsis on admission mssa bacterimia om left foot abcsess 8 weeks of ancef echo surgical debriedment may end up with bka
[2020-02-12] MEDS: FERROUS SULFATE 325 MG TAB PO SCH (17:45)
[2020-02-12] MEDS ORDERED: SODIUM CHLORIDE 0.9% 250ML 250 ML ONE (19:55)
[2020-02-12] MEDS: CEFAZOLIN SOD 1 GM/NS 50ML 50 ML IV SCH (21:05)
[2020-02-13] VITALS (7 sets, daily range): BP systolic 125–157; BP diastolic 64–85
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
[2020-02-13] MEDS: CEFAZOLIN SOD 1 GM/NS 50ML 50 ML IV SCH ×3 (06:01→21:28)
[2020-02-13 06:12] LABS: BASOPHILS # (AUTO) 0.1 (0.0-0.1); BASOPHILS % 0.5 % (0.0-1.0); EOSINOPHILS # (AUTO) 0.1 (0.0-0.4); EOSINOPHILS % 1.2 % (0.0-6.0); HEMATOCRIT 22.9 % (38.2-49.6); LYMPHOCYTES # (AUTO) 1.4 (1.0-3.2); LYMPHOCYTES % 15.1 % (18.0-39.1); MEAN CORPUSCULAR HEMOGLOBIN 26.5 pg (28-32); MEAN CORPUSCULAR HGB CONC 30.6 g/dL (31-35); MEAN CORPUSCULAR VOLUME 86.7 fL (81-99); MONOCYTES # (AUTO) 0.8 (0.2-0.8); MONOCYTES % 8.5 % (4.4-11.3); NEUTROPHILS # (AUTO) 6.8 (2.1-6.9); NEUTROPHILS % 73.7 % (38.7-80.0); PLATELET COUNT 452 x10e3/uL (140-360); RED BLOOD COUNT 2.64 x10e6/uL (4.3-5.7); RED CELL DISTRIBUTION WIDTH 15.6 % (11.7-14.4)
[2020-02-13 06:53] LABS: ALANINE AMINOTRANSFERASE 50 IU/L (0-55); ALBUMIN 1.4 g/dL (3.5-5.0); ALBUMIN/GLOBULIN RATIO 0.3 (0.8-2.0); ALKALINE PHOSPHATASE 568 IU/L (40-150); BLOOD UREA NITROGEN 6 mg/dL (7-26); BUN/CREATININE RATIO 9 (6-25); CALCIUM 7.9 mg/dL (8.4-10.2); CARBON DIOXIDE 24 mmol/L (22-29); CHLORIDE 104 mmol/L (98-107); CREATININE, SERUM 0.69 mg/dL (0.72-1.25); EST GLOMERULAR FILTRATION RATE > 60 ML/MIN (60-); GLUCOSE 128 mg/dL (74-118); MAGNESIUM 2.1 MG/DL (1.3-2.1); SODIUM 134 mmol/L (136-145)
--- NOTE | 2020-02-13 07:01 | NUR ---
Bedside report and walking rounds completed with oncoming nurse. Patient in bed with call light within reach. No issues or concerns noted.
--- NOTE | 2020-02-13 07:22 | NUR ---
PATIENT IN BED WITH HEAD OF BED ELEVATED, WATCHING TV, NO COMPLAIN VOICED. BED IN LOWER POSITION, CALL LIGHT AT REACH.
[2020-02-13] MEDS: INSULIN LISPRO 100 UNIT/1 ML 3ML VIAL SQ SCH ×4 (07:30→20:15)
--- NOTE | 2020-02-13 08:22 | Progress Note ---
DATE: 02/13/2020 SUBJECTIVE: The patient is seen at bedside, doing somewhat better. Denies any history of fever, chills, nausea, or vomiting. OBJECTIVE: VITAL SIGNS: Did peak of a temp of 101.5 in the morning. Currently at 98.3 with a pulse rate of 86, respirations 16, blood pressure 129/69, and O2 saturation 95%. LABORATORY DATA: Labs show white blood cell count dropping to 9.18, hemoglobin 7.0 with a platelet count of 452. Ulcerations to the left lower extremity showing some granulation tissue to the lateral aspect of the left foot and plantar aspect of the left heel. Still some drainage noted within the ulceration, but a lot less, still positive cellulitis up to the ankle joint area. ASSESSMENT: Grade 4 ulcers, possible osteo with deep space infection. PLAN: We will continue IV antibiotics as per Dr. De Guzman. Continue local wound care with Santyl, followed by diluted wet-to-dry Betadine. We will continue to treat conservatively for now. Further bedside debridements will be done. CHAPARRO Ng/JAH /[id number]
[2020-02-13] MEDS: COLLAGENASE 5 GM TUBE TOP SCH (09:03)
[2020-02-13] MEDS ORDERED: FENTANYL CITRATE/PF 100MCG/2 ML INJ ONE (10:45)
[2020-02-13] MEDS ORDERED: SODIUM CHLORIDE 0.9% 250ML 250 ML IV SCH (10:45)
[2020-02-13] MEDS ORDERED: MIDAZOLAM HCL 2 MG/2 ML VIAL ONE (10:45)
[2020-02-13] MEDS ORDERED: SODIUM CHLORIDE 0.9% 1000ML 1,000 ML ONE (10:46)
[2020-02-13] MEDS ORDERED: IOPAMIDOL 300MG/ML 100 ML INFUS..BTL IV ONE (10:46)
[2020-02-13] MEDS ORDERED: HEPARIN SOD/SOD CHLORIDE 2,000 ML ONE (10:46)
[2020-02-13] MEDS ORDERED: LIDOCAINE HCL 2% LOCAL 20 ML VIAL ONE (10:46)
--- NOTE | 2020-02-13 11:00 | NUR ---
PATIENT OFF UNIT TO AUTOMATIC LINE SET UP MECHANIC.
--- NOTE | 2020-02-13 11:03 | Progress Note ---
DATE: SUBJECTIVE: The patient is seen and evaluated. Available labs and notes reviewed. REVIEW OF SYSTEMS: No nausea, vomiting, fever, chills, chest pain, shortness of breath, headache, rash, dysuria, or polyuria. PHYSICAL EXAMINATION: VITAL SIGNS: Temperature 98.3 with a T-max of 101.5 midnight last night, but clinically no acute distress. No shortness of breath. Pulse is 86, respiration 18, and blood pressure 129/69. GENERAL: Alert and oriented, no acute distress. CV: S1 and S2. CHEST: Equal expansion. Clear to auscultation. No acute distress. ABDOMEN: Soft and nontender. No distention. HEENT: Moist. No pallor. No JVD. EXTREMITIES: Left foot edema, cellulitis, wounds with copious amount of drainage. No pus noted. MEDICATIONS: Medication list reviewed and from Infectious Disease point of view, the patient is on cefazolin. LABORATORY STUDIES: White count 9.18, hemoglobin 7, and platelet 452. Sodium 134, potassium 4, and creatinine 0.69. Serology; coronavirus PCR is pending. MICROBIOLOGY: Blood culture, MSSA. Left foot wound culture, MSSA on 02/07. On 02/08, showed Enterococcus faecalis and Staph, Enterococcus not VRE. RADIOLOGY STUDIES: MRI of the foot suggested multiple soft tissue ulcerations of the foot, osteomyelitis of calcaneus, possible multilobulated abscesses of the hindfoot with soft tissue gas. ASSESSMENT AND PLAN: 1. Sepsis, on admission-with methicillin-sensitive Staphylococcus aureus. 2. Infected left foot. 3. Abnormal MRI as above. 4. Left foot abscess. 5. Left foot osteomyelitis. 6. The patient is seen by Podiatry. Plan for bedside debridement. Also seen by Cardiology, pending angiogram hopefully today. Continue with cefazolin. Follow up with the cultures and monitor the patient clinically. Concerned about endothelial infection/endocarditis. Cardiology on the case. Further management of this patient based on daily finding on laboratory and physical examination. Please refer to chart for more information. Discussed with Dr. De Guzman in details. Dictated by Moises Berrios PA-C (Al) Hira De Guzman MD /MODL :[id number] /[id number]
[2020-02-13] MEDS: INSULIN ASPART 70/30 100 UNITS/ML VIAL SC SCH ×2 (13:00→17:13)
[2020-02-13] MEDS: MAGNESIUM OXIDE 400 MG TAB PO SCH ×2 (13:00→17:16)
[2020-02-13] MEDS: OYST-CAL-D 500MG TABLET PO SCH ×2 (13:00→17:16)
[2020-02-13] MEDS: ASCORBIC ACID 500 MG TAB PO SCH ×2 (13:00→17:16)
[2020-02-13] MEDS: LOSARTAN POTASSIUM 100 MG TAB PO SCH (13:00)
--- NOTE | 2020-02-13 13:00 | NUR ---
PATIENT RECEIVED FROM CERAMIC ENGINEERING PROFESSOR. HAD ANGIOGRAM OF LEFT FOOT. DRESSING DRY AND INTACT TO RIGHT GROIN, NO HEMATOMA NOTED. PATIENT DENIED PAIN AT THIS TIME. ON BED REST TILL 4:30PM. ALL AM MEDICATIONS GIVEN. V/S 97.7-82-18-157/85 AND 96% RA.
[2020-02-13] MEDS: ATORVASTATIN 20 MG TAB PO SCH (13:37)
[2020-02-13] MEDS: MULTIVITAMINS/MINERALS TAB PO SCH (13:38)
[2020-02-13] MEDS: ZINC SULFATE 220 MG CAP PO SCH (13:38)
--- NOTE | 2020-02-13 14:34 | Progress Note ---
DATE: SUBJECTIVE: The patient feeling better. No chest pain or shortness of breath. Reports foot pain. OBJECTIVE: VITAL SIGNS: Temperature is 98.3, heart rate is 86, respirations are 18, blood pressure is 129/69, and oxygen saturation is 94% on room air. GENERAL: Well-appearing, well built, in no apparent distress. CARDIOVASCULAR: Regular rate and rhythm. LUNGS: Clear to auscultation. ABDOMEN: Soft, nontender, nondistended. EXTREMITIES: Left foot wound wrapped and dressed. LABORATORY DATA: Reviewed. Telemetry monitoring revealed normal sinus rhythm. Peripheral angiography revealed chronic total occlusion of the anterior tibial artery. IMPRESSION: 1. Peripheral artery disease. 2. Diabetic foot wound. 3. Hypertension. 4. Hyperlipidemia. 5. Diabetes mellitus. RECOMMENDATIONS: Peripheral angiography today revealed 100% occluded left anterior tibial artery with reconstitution of the dorsalis pedis. His peroneal and posterior tibial arteries were patent with only mild disease. I was unable to successfully intervene on the anterior tibial from an antegrade approach. The patient will need to be brought back after his dressing has been taken off for a dorsalis pedis retrograde approach. Continue all other treatment per Primary and Podiatry team. DO XIMENA Perez/MODL /[id number]
--- NOTE | 2020-02-13 16:57 | NUR ---
BED REST TIME COMPLETED. PATIENT IN BED RESTING WITH HEAD OF BED ELEVATED. DRESSING DRY AND INTACT TO RIGHT GROIN. CALL LIGHT AT REACH.
[2020-02-13] MEDS: FERROUS SULFATE 325 MG TAB PO SCH (17:16)
--- NOTE | 2020-02-13 19:00 | NUR ---
Bedside report and walking rounds completed with off going nurse. Patient in bed with call light within reach. No issues or concerns noted. Bed locked and in lowest position. Will continue to monitor.
--- NOTE | 2020-02-13 19:08 | NUR ---
BED SIDE SHIFT REPORT GIVEN TO ON COMING NURSE. PATIENT IN BED RESTING WITH CALL LIGHT AT REACH.
--- NOTE | 2020-02-13 20:00 | NUR ---
Dressing changed to left foot per MD order, tolerated well.
[2020-02-13] MEDS ORDERED: SODIUM CHLORIDE 0.9% 250ML 250 ML ONE (22:16)
[2020-02-13] MEDS: ACETAMINOPHEN 325 MG TAB PO PRN (22:57)
[2020-02-14] VITALS (8 sets, daily range): BP systolic 130–157; BP diastolic 65–79
[2020-02-14] MEDS: CEFAZOLIN SOD 1 GM/NS 50ML 50 ML IV SCH ×3 (05:34→22:28)
[2020-02-14 05:55] LABS: BASOPHILS % 0.5 % (0.0-1.0); EOSINOPHILS # (AUTO) 0.1 (0.0-0.4); EOSINOPHILS % 1.5 % (0.0-6.0); HEMATOCRIT 25.8 % (38.2-49.6); LYMPHOCYTES # (AUTO) 1.6 (1.0-3.2); LYMPHOCYTES % 19.8 % (18.0-39.1); MEAN CORPUSCULAR HEMOGLOBIN 26.6 pg (28-32); MEAN CORPUSCULAR VOLUME 85.7 fL (81-99); MONOCYTES # (AUTO) 0.5 (0.2-0.8); MONOCYTES % 6.9 % (4.4-11.3); NEUTROPHILS # (AUTO) 5.5 (2.1-6.9); NEUTROPHILS % 70.4 % (38.7-80.0); PLATELET COUNT 516 x10e3/uL (140-360); RED BLOOD COUNT 3.01 x10e6/uL (4.3-5.7); RED CELL DISTRIBUTION WIDTH 17.4 % (11.7-14.4)
[2020-02-14 06:19] LABS: ALANINE AMINOTRANSFERASE 56 IU/L (0-55); ALBUMIN 1.4 g/dL (3.5-5.0); ALBUMIN/GLOBULIN RATIO 0.3 (0.8-2.0); ALKALINE PHOSPHATASE 661 IU/L (40-150); ANION GAP 11.3 mmol/L (8-16); BLOOD UREA NITROGEN 13 mg/dL (7-26); BUN/CREATININE RATIO 16 (6-25); CALCIUM 7.7 mg/dL (8.4-10.2); CARBON DIOXIDE 24 mmol/L (22-29); CHLORIDE 103 mmol/L (98-107); CREATININE, SERUM 0.82 mg/dL (0.72-1.25); EST GLOMERULAR FILTRATION RATE > 60 ML/MIN (60-); GLUCOSE 247 mg/dL (74-118); MAGNESIUM 2.2 MG/DL (1.3-2.1); POTASSIUM 4.3 mmol/L (3.5-5.1); SODIUM 134 mmol/L (136-145)
--- NOTE | 2020-02-14 07:11 | NUR ---
Bedside report and walking rounds completed with oncoming nurse. Patient in bed with call light within reach. No issues or concerns noted.
--- NOTE | 2020-02-14 07:20 | NUR ---
PATIENT IN BED RESTING WITH NO S/S OF DISTRESS. URINAL EMPTIED AND CLEANSED. BED IN LOWER POSITION, CALL LIGHT AT REACH.
[2020-02-14] MEDS: INSULIN LISPRO 100 UNIT/1 ML 3ML VIAL SQ SCH ×4 (07:30→20:41)
[2020-02-14] MEDS: INSULIN ASPART 70/30 100 UNITS/ML VIAL SC SCH ×2 (08:00→17:00)
[2020-02-14] MEDS: MAGNESIUM OXIDE 400 MG TAB PO SCH ×2 (09:11→17:36)
[2020-02-14] MEDS: ASCORBIC ACID 500 MG TAB PO SCH ×2 (09:11→17:36)
[2020-02-14] MEDS: OYST-CAL-D 500MG TABLET PO SCH ×2 (09:11→17:36)
[2020-02-14] MEDS: MULTIVITAMINS/MINERALS TAB PO SCH (09:11)
[2020-02-14] MEDS: ZINC SULFATE 220 MG CAP PO SCH (09:11)
[2020-02-14] MEDS: ATORVASTATIN 20 MG TAB PO SCH (09:11)
[2020-02-14] MEDS: LOSARTAN POTASSIUM 100 MG TAB PO SCH (09:11)
[2020-02-14] MEDS ORDERED: ONDANSETRON HCL 4 MG ORAL DISINTEGRATING TAB PO PRN (09:15)
[2020-02-14] MEDS: COLLAGENASE 5 GM TUBE TOP SCH (09:42)
--- NOTE | 2020-02-14 11:00 | NUR ---
CM SPOKE W AL W SHEBIB REGARDING CEFAZOLIN NOT ON SENSITIVITY AND PT'S LOW GRADE TEMP 99.6. STATES CEFAZOLIN IS USED A FIRST LINE OF DEFENSE FOR MSSA.
--- NOTE | 2020-02-14 11:29 | Progress Note ---
DATE: SUBJECTIVE: The patient is seen and evaluated. Available labs and notes reviewed. Discussed with staff. REVIEW OF SYSTEMS: No nausea, vomiting, fever, chills, chest pain, shortness of breath, diarrhea, headache, or rash. Tolerating antibiotics. PHYSICAL EXAMINATION: VITAL SIGHS: Temperature maximum today is 99.6 with a maximum temperature of 101.5 the night before last night midnight, pulse is 86, respiration 19, and blood pressure 147/71. GENERAL: Alert and oriented x3. No acute distress. CV: S1 and S2. CHEST: Equal expansion. Clear to auscultation. No acute distress. ABDOMEN: Soft and nontender. No distention. HEENT: Moist. No pallor. No JVD. EXTREMITIES: Left foot wound on local care. MEDICATIONS: Medication list reviewed and from Infectious Disease point of view, the patient is on cefazolin. LABORATORY STUDIES: White count 7.87, hemoglobin 8, and platelet 516. Sodium 134, potassium 4.3, and creatinine 0.82. Vancomycin trough of 5.9. Serology; coronavirus PCR is pending. MICROBIOLOGY: Blood culture Staph aureus MSSA, not MRSA. Recheck blood culture 02/12/2020, is negative. Wound culture 02/08, showed Enterococcus faecalis, not VRE and Staph aureus, pending identification and sensitivity and as a matter of fact refers back to the wound culture from 02/07, which was MSSA. IMAGING: MRI of the foot on 02/08, showed multiple soft tissue ulcerations of the foot with osteomyelitis of a calcaneus, also possibly multilobulated abscesses of the hindfoot with soft tissue gas. ASSESSMENT AND PLAN: 1. Osteomyelitis and abscess of the left foot. 2. Sepsis, on admission with methicillin-sensitive Staphylococcus aureus in the blood with recheck blood culture negative. 3. Peripheral arterial disease. The patient had angiogram by Dr. Mitchell, showed 100% occluded left anterior tibial artery with reconstitution of the dorsalis pedis, peroneal and posterior tibial artery were patent with only mild disease. Dr. Mitchell was not able successfully to intervene on anterior tibial from an antegrade approach. The patient will need to be taken back after his dressing has been taken off for possible dorsalis pedis retrograde approach. 4. Diabetes. 5. Anemia. 6. Hypertension. 7. Hyperlipidemia. 8. Debility. 9. The patient is on cefazolin. Continue with cefazolin and followup the patient clinically. Podiatry note reviewed as well, which as of 02/13/2020, plan was to continue conservative treatment with possible further bedside debridement. Overall poor prognosis. Discussed with Dr. De Guzman. Please refer to chart for more information. Dictated by Moises Blackwell) DEEPA Berrios Hira De Guzman MD /MODL /[id number]
--- NOTE | 2020-02-14 12:15 | NUR ---
DRESSING CHANGED TO LEFT FOOT ORDERED. PATIENT IN BED WITH CALL LIGHT AT REACH.
--- NOTE | 2020-02-14 15:05 | Progress Note ---
DATE: 02/14/2020 SUBJECTIVE: The patient is seen at bedside, doing somewhat better. He denies any history of fever, chills, nausea, or vomiting. Still peaking some fevers. OBJECTIVE: VITALS: Temp 99.6, pulse rate 86, respirations 19, blood pressure 147/65, O2 saturation of 96%. LABORATORY DATA: Labs show white blood cell count continued to drop at 7.87, hemoglobin 8.0 with a platelet count of 516. Pedal pulses palpable. Has multiple ulcerations to both lower extremities, still draining pus medial and laterally overlying the talotibial joint. Ulceration lateral aspect of the left foot, 2.5 to 3 cm in diameter down to extensor longus tendon with ulceration plantar aspect right heel, tracking down to bone and ulceration plantar aspect metatarsophalangeal joints showing some granulation tissue and closing, is less than 2.5 to 3 cm in diameter. ASSESSMENT: Multiple grade 3 and grade 4 ulcerations, cellulitis with diabetic neuropathy. PLAN: We will continue IV antibiotics. Ulcerations will be debrided at bedside once again tomorrow. We will need to treat conservatively for now. Continue IV cefazolin. We will continue to follow. Dressing needs to be changed twice a day with Santyl, followed by diluted wet-to-dry Betadine with very little dressing to allow through the dressing. CHAPARRO Ng/JAH /[id number]
--- NOTE | 2020-02-14 15:53 | NUR ---
PATIENT OUT OF BED TO CHAIR, DRESSING INTACT TO LEFT FOOT. CALL LIGHT AT REACH.
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
[2020-02-14] MEDS: FERROUS SULFATE 325 MG TAB PO SCH (17:36)
--- NOTE | 2020-02-14 18:05 | Progress Note ---
DATE: 02/14/2020 Cardiology Progress Note SUBJECTIVE: The patient denies chest pain or shortness of breath. OBJECTIVE: VITAL SIGNS: Temperature 99 degrees, pulse 90, respiratory rate 21, blood pressure 157/79, and oxygen saturation 92% on room air. GENERAL: Awake, alert, in no acute distress. LUNGS: Clear to auscultation bilaterally. No wheezes or crackles. CARDIOVASCULAR: Normal rate. Regular rhythm. No murmur. Normal S1 and S2. ABDOMEN: Soft and nontender. EXTREMITIES: No edema. Left foot dressing is in place. CARDIAC MEDICATIONS: Losartan 100 mg p.o. daily and atorvastatin 20 mg p.o. daily. LABORATORY DATA: WBC 7.87, hemoglobin 8, hematocrit 25.8, and platelets 516. Sodium 134, potassium 4.3, chloride 103, CO2 24, BUN 13, and creatinine 0.82. Telemetry personally reviewed and interpreted, revealing normal sinus rhythm. IMPRESSION: 1. Peripheral arterial disease with MEDICAL IMAGING DIRECTOR of the anterior tibial artery. 2. Diabetic foot wound. 3. Hypertension. 4. Hyperlipidemia. 5. Diabetes mellitus. RECOMMENDATIONS: Peripheral angiogram revealed 100% occlusion of the left anterior tibial artery with reconstitution of the dorsalis pedis. The peroneal and posterior tibial arteries were patent with only mild disease. The anterior tibial artery MEDICAL IMAGING DIRECTOR could not be successfully open via an antegrade approach. We will bring the patient back to the cardiac catheterization tomorrow to attempt via retrograde approach. Continue current cardiac medications. Antibiotics per Infectious Disease. Thank you for this consult. We will continue to. Lola Vela MD ABS/MODL /[id number]
[2020-02-14] MEDS ORDERED: ALTEPLASE RECOMBINANT 2 MG/2 ML VIAL IV PRN (19:15)
--- NOTE | 2020-02-14 20:13 | NUR ---
RECEIVED PT IN BED AOX3 .DENIES PAIN .RESPIRATIONS ARE EVEN AND UNLABORED .LEFT FOOT WITH DRESSING .CALL LIGHT WITH IN REACH .CONTINUE TO MONITOR .
[2020-02-14] MEDS: INSULIN GLARGINE 100 UNITS/ML VIAL SQ SCH (20:41)
[2020-02-15] VITALS (8 sets, daily range): BP systolic 124–165; BP diastolic 56–89
[2020-02-15] MEDS: CEFAZOLIN SOD 1 GM/NS 50ML 50 ML IV SCH ×3 (06:00→21:30)
[2020-02-15 06:40] LABS: BASOPHILS # (AUTO) 0.1 (0.0-0.1); BASOPHILS % 0.6 % (0.0-1.0); EOSINOPHILS # (AUTO) 0.1 (0.0-0.4); EOSINOPHILS % 1.3 % (0.0-6.0); HEMATOCRIT 26.2 % (38.2-49.6); HEMOGLOBIN 8.1 g/dL (14.0-18.0); LYMPHOCYTES # (AUTO) 1.4 (1.0-3.2); LYMPHOCYTES % 18.4 % (18.0-39.1); MEAN CORPUSCULAR HEMOGLOBIN 26.5 pg (28-32); MEAN CORPUSCULAR HGB CONC 30.9 g/dL (31-35); MEAN CORPUSCULAR VOLUME 85.6 fL (81-99); MONOCYTES # (AUTO) 0.5 (0.2-0.8); MONOCYTES % 6.8 % (4.4-11.3); NEUTROPHILS # (AUTO) 5.7 (2.1-6.9); NEUTROPHILS % 72.1 % (38.7-80.0); PLATELET COUNT 495 x10e3/uL (140-360); RED BLOOD COUNT 3.06 x10e6/uL (4.3-5.7); RED CELL DISTRIBUTION WIDTH 17.2 % (11.7-14.4)
--- NOTE | 2020-02-15 06:40 | NUR ---
Received bedside shift report from off going nurse. Patient is resting in bed. No acute distress noted. Call light within reach. Bed in the lowest position.
--- NOTE | 2020-02-15 06:43 | NUR ---
PT RESTED DURING THE NIGHT .DENIES PAIN .CALL LIGHT WITH IN REACH .PT IS NPO FOR PERIPHERAL ANGIOGRAM CONTINUE TO MONITOR
[2020-02-15 07:11] LABS: ALANINE AMINOTRANSFERASE 42 IU/L (0-55); ALBUMIN 1.5 g/dL (3.5-5.0); ALBUMIN/GLOBULIN RATIO 0.3 (0.8-2.0); ALKALINE PHOSPHATASE 612 IU/L (40-150); ANION GAP 11.3 mmol/L (8-16); BLOOD UREA NITROGEN 7 mg/dL (7-26); BUN/CREATININE RATIO 10 (6-25); CALCIUM 8.2 mg/dL (8.4-10.2); CARBON DIOXIDE 24 mmol/L (22-29); CHLORIDE 104 mmol/L (98-107); CREATININE, SERUM 0.73 mg/dL (0.72-1.25); EST GLOMERULAR FILTRATION RATE > 60 ML/MIN (60-); GLUCOSE 114 mg/dL (74-118); POTASSIUM 4.3 mmol/L (3.5-5.1); SODIUM 135 mmol/L (136-145)
[2020-02-15] MEDS: INSULIN LISPRO 100 UNIT/1 ML 3ML VIAL SQ SCH ×4 (07:30→20:53)
[2020-02-15] MEDS: INSULIN ASPART 70/30 100 UNITS/ML VIAL SC SCH ×2 (08:00→16:40)
[2020-02-15] MEDS: ATORVASTATIN 20 MG TAB PO SCH (08:16)
[2020-02-15] MEDS: ZINC SULFATE 220 MG CAP PO SCH (08:16)
[2020-02-15] MEDS: MULTIVITAMINS/MINERALS TAB PO SCH (08:16)
[2020-02-15] MEDS: OYST-CAL-D 500MG TABLET PO SCH ×2 (08:16→16:00)
[2020-02-15] MEDS: LOSARTAN POTASSIUM 100 MG TAB PO SCH (08:16)
[2020-02-15] MEDS: ASCORBIC ACID 500 MG TAB PO SCH ×2 (08:16→16:00)
[2020-02-15] MEDS: MAGNESIUM OXIDE 400 MG TAB PO SCH ×2 (08:16→16:00)
[2020-02-15] MEDS: COLLAGENASE 5 GM TUBE TOP SCH (08:45)
--- NOTE | 2020-02-15 09:58 | Progress Note ---
DATE: 02/15/2020 SUBJECTIVE: The patient at bedside. Relates he is doing better. He is moving his ankle joint a lot better, better range of motion, relates decreased swelling. OBJECTIVE: VITAL SIGNS: Afebrile, pulse rate 82, respirations 17, blood pressure 150/79, O2 saturation 95%. LABORATORY DATA: White blood cell count of 7.83, hemoglobin 8.1 with a platelet count 495. Ulcerations to the plantar aspect of the left foot, dorsal lateral aspect, left lower extremity still tracking to bone, some drainage noted with swelling surrounding talotibial joint and dorsal aspect of the left foot. ASSESSMENT: Grade 4 ulcer, possible osteomyelitis with cellulitis. PLAN: The ulcerations were debrided down to muscle tendon and bone. Devitalized tissue sharply excised until good viable bleeding tissue was achieved. Decreased purulent drainage was obtained. Sterile dressing was applied with Santyl followed by diluted wet-to-dry Betadine. Good bleeding was achieved. We will continue to treat conservatively with local wound care. Serial debridements to try for any type of amputation down the road. The debridements were done surgically with a sterile 10 blade. Surgical excision and debrided was performed until good viable bleeding tissue was achieved. CHAPARRO Ng/JAH /[id number]
--- NOTE | 2020-02-15 11:38 | Progress Note ---
DATE: SUBJECTIVE: The patient is seen and evaluated. Available labs and notes reviewed. Discussed with the patient and Dr. De Guzman in details. Please refer to the chart for more information. REVIEW OF SYSTEMS: The patient feels better. He says he is moving his left lower extremity more freely. No nausea, vomiting, fever, chills, chest pain, shortness of breath, rash, diarrhea. States that he tolerates antibiotics. PHYSICAL EXAMINATION: VITAL SIGNS: Temperature 98.5, pulse is 82, respiration is 17, blood pressure 150/79. MEDICATIONS: Medication list reviewed. As far as Infectious Disease point of view patient is on cefazolin. LABORATORY STUDIES: On 02/14, white count 7.83, hemoglobin 8.1, platelet 495. Sodium 135, potassium 4.3, creatinine 0.73. Serology; coronavirus PCR 02/07 is pending. Microbiology; blood culture MSSA on 02/08/2020 with a recheck on 02/12/2020 negative for 48 hours. Wound culture also showed MSSA and Enterococcus faecalis, not VRE. RADIOLOGY STUDIES: No new radiology studies available. ASSESSMENT AND PLAN: 1. Left foot osteomyelitis and abscess. 2. Sepsis on admission with methicillin susceptible Staphylococcus aureus bacteremia. Recheck blood culture negative. 3. Peripheral arterial disease. 4. Diabetes. 5. Hypertension. 6. Hyperlipidemia. 7. Anemia. 8. Debility. 9. The patient is status post debridement down to the bone by rigging up man. Drainage of purulent material was obtained by rigging up man and plan to treat conservatively and serial debridements and plan is to try for local care at this point by Podiatry. Cardiology note also noted. Plan is the patient go back to the open hearth laborer today for retrograde approach, since peripheral angiogram showed 100% occlusion of the left anterior tibial artery with reconstitution of the dorsalis pedis and anterior tibial artery. DITCH WORKER could not be successfully opened via an antegrade approach. Foot still is malodorous to me. Continue with antibiotics. Overall, patient has risk for BKA. Discussed with Dr. De Guzman in details. Please refer to chart for more information. Thank you for this dictation. Dictated by Moises Berrios PA-C (Al) Hira De Guzman MD /MODL /[id number]
[2020-02-15] MEDS: FERROUS SULFATE 325 MG TAB PO SCH (16:00)
--- NOTE | 2020-02-15 16:10 | Progress Note ---
DATE: 02/15/2020 Cardiology Progress Note SUBJECTIVE: The patient denies chest pain or shortness of breath. Peripheral angiogram was canceled for today as the patient had debridement of the foot by Podiatry this morning. OBJECTIVE: VITAL SIGNS: Temperature 98.2 degrees, pulse 88, respiratory rate 18, blood pressure 164/85, oxygen saturation 94% on room air. GENERAL: Awake, alert, in no acute distress. LUNGS: Clear to auscultation bilaterally. No wheezes or crackles. CARDIOVASCULAR: Normal rate. Regular rhythm. No murmur. Normal S1 and S2. ABDOMEN: Soft and nontender. EXTREMITIES: No edema. Left foot with dressing in place. CARDIAC MEDICATIONS: 1. Losartan 100 mg p.o. daily. 2. Atorvastatin 20 mg p.o. daily. LABORATORY DATA: WBC 7.83, hemoglobin 8.1, hematocrit 26.2, platelets 495. Sodium 135, potassium 4.3, chloride 104, CO2 of 24, BUN 7, and creatinine 0.73. Telemetry was personally reviewed and interpreted revealing normal sinus rhythm. IMPRESSION: 1. Peripheral arterial disease with CT of the anterior tibial artery. 2. Diabetic foot wound. 3. Hypertension. 4. Hyperlipidemia. 5. Diabetes mellitus. RECOMMENDATIONS: Peripheral angiogram revealed 100% occlusion of the left anterior tibial artery with reconstitution of the dorsalis pedis. The peroneal and posterior tibial arteries were patent with only mild disease. The anterior tibial artery CARDIOLOGY ASSOCIATE could not be successfully opened via an antegrade approach. The patient will be brought back to the cardiac catheterization laboratory tomorrow to attempt via retrograde approach. Continue current cardiac medications. Antibiotics per Infectious Disease. Echocardiogram results findings were discussed with Infectious Disease. The patient has what appears to be calcification of the aortic valve, however, cannot rule out endocarditis in the appropriate clinical setting. However, as the patient is planned for eight weeks of IV antibiotics due to his osteomyelitis, PENG at this time is unlikely to change the plan of care. We will continue to monitor closely. Thank you for this consult. We will continue to follow. Lola Vela MD ABS/MODL /[id number]
--- NOTE | 2020-02-15 19:00 | NUR ---
BEDSIDE SHIFT REPORT GIVEN TO ONCOMING NURSE. PATIENT IS RESTING IN BED. NO ACUTE DISTRESS NOTED. CALL LIGHT WITHIN REACH. BED IN THE LOWEST POSITION.
--- NOTE | 2020-02-15 19:00 | NUR ---
Received patient awake, not in distress, no complaints of pain at this time. Left foot dressing dry and intact, no bleeding noted, will continue to monitor patient
[2020-02-15] MEDS: INSULIN GLARGINE 100 UNITS/ML VIAL SQ SCH (20:53)
--- NOTE | 2020-02-15 22:42 | NUR ---
paged Dr. Mitchell to clarify re procedure tomorrow, awaiting call back
--- NOTE | 2020-02-15 22:48 | NUR ---
Dr. Mitchell called back, patient is scheduled for angiogram tomorrow at 2 pm, patient informed, instructed to be on NPO after midnight, he verbalized understanding.
[2020-02-16] VITALS: BP 143/78
[2020-02-16 04:00] VITALS: BP 138/69
[2020-02-16] MEDS: CEFAZOLIN SOD 1 GM/NS 50ML 50 ML IV SCH ×3 (05:40→21:29)
[2020-02-16 06:56] LABS: BASOPHILS % 0.5 % (0.0-1.0); EOSINOPHILS # (AUTO) 0.1 (0.0-0.4); EOSINOPHILS % 1.2 % (0.0-6.0); HEMATOCRIT 26.8 % (38.2-49.6); HEMOGLOBIN 8.2 g/dL (14.0-18.0); LYMPHOCYTES # (AUTO) 1.7 (1.0-3.2); LYMPHOCYTES % 21.3 % (18.0-39.1); MEAN CORPUSCULAR HEMOGLOBIN 25.7 pg (28-32); MEAN CORPUSCULAR HGB CONC 30.6 g/dL (31-35); MONOCYTES # (AUTO) 0.6 (0.2-0.8); MONOCYTES % 7.3 % (4.4-11.3); NEUTROPHILS # (AUTO) 5.6 (2.1-6.9); NEUTROPHILS % 68.8 % (38.7-80.0); PLATELET COUNT 555 x10e3/uL (140-360); RED BLOOD COUNT 3.19 x10e6/uL (4.3-5.7)
[2020-02-16 07:18] LABS: ALANINE AMINOTRANSFERASE 33 IU/L (0-55); ALBUMIN 1.6 g/dL (3.5-5.0); ALBUMIN/GLOBULIN RATIO 0.3 (0.8-2.0); ALKALINE PHOSPHATASE 536 IU/L (40-150); ANION GAP 10.3 mmol/L (8-16); BLOOD UREA NITROGEN 11 mg/dL (7-26); BUN/CREATININE RATIO 14 (6-25); CALCIUM 8.4 mg/dL (8.4-10.2); CARBON DIOXIDE 26 mmol/L (22-29); CHLORIDE 102 mmol/L (98-107); CREATININE, SERUM 0.79 mg/dL (0.72-1.25); EST GLOMERULAR FILTRATION RATE > 60 ML/MIN (60-); GLUCOSE 157 mg/dL (74-118); POTASSIUM 4.3 mmol/L (3.5-5.1); SODIUM 134 mmol/L (136-145)
[2020-02-16] MEDS: INSULIN LISPRO 100 UNIT/1 ML 3ML VIAL SQ SCH ×4 (07:30→21:00)
[2020-02-16 07:32] VITALS: BP 146/81
--- NOTE | 2020-02-16 07:47 | NUR ---
The pt. is in bed awake and is maintained n p o for surgical procedure this p m.
[2020-02-16] MEDS: INSULIN ASPART 70/30 100 UNITS/ML VIAL SC SCH ×2 (08:00→17:59)
[2020-02-16 08:19] VITALS: BP 146/81
--- NOTE | 2020-02-16 08:45 | NUR ---
Dr. Otto in and changed the dressing to the left foot.
[2020-02-16] MEDS: MULTIVITAMINS/MINERALS TAB PO SCH (09:28)
[2020-02-16] MEDS: OYST-CAL-D 500MG TABLET PO SCH ×2 (09:28→17:56)
[2020-02-16] MEDS: LOSARTAN POTASSIUM 100 MG TAB PO SCH (09:28)
[2020-02-16] MEDS: ASCORBIC ACID 500 MG TAB PO SCH ×2 (09:28→18:07)
[2020-02-16] MEDS: ATORVASTATIN 20 MG TAB PO SCH (09:28)
[2020-02-16] MEDS: MAGNESIUM OXIDE 400 MG TAB PO SCH ×2 (09:28→17:56)
[2020-02-16] MEDS: ZINC SULFATE 220 MG CAP PO SCH (09:29)
[2020-02-16] MEDS: COLLAGENASE 5 GM TUBE TOP SCH (09:29)
--- NOTE | 2020-02-16 11:59 | Progress Note ---
DATE: SUBJECTIVE: The patient is seen and evaluated. Available labs and notes reviewed. Discussed with staff. No new events. REVIEW OF SYSTEMS: The patient states that he feels better every time he gets antibiotics. No nausea, vomiting, fever, chills, chest pain, shortness of breath, headache, cough, rash, dysuria, or diarrhea. Tolerating antibiotics. PHYSICAL EXAMINATION: VITAL SIGNS: Temperature 97.9, pulse 74, respiration 20, and blood pressure 130/84. Recheck vital signs; temperature 98.1, pulse 84, respiration 18, and blood pressure 146/81. GENERAL: Alert and oriented, no acute distress. CV: S1 and S2. CHEST: Equal expansion. Clear to auscultation. No acute distress. ABDOMEN: Soft and nontender. No distention. HEENT: Moist. No pallor. No JVD. EXTREMITIES: Left foot dressed on local care with cellulitis and wounds. MEDICATIONS: Medication list reviewed and from Infectious Disease point of view, the patient is on cefazolin. LABORATORY STUDIES: White count of 8.08, hemoglobin 8.2, and platelets 555. Sodium 134, potassium 4.3, and creatinine 0.79. Serology; coronavirus 01/30, it is not reactive. MICROBIOLOGY: Blood culture MSSA on 02/07 with recheck negative on 02/11. Wound culture was MSSA and Enterococcus faecalis, not VRE on 02/07 and 02/08. IMAGING: No new imaging available. ASSESSMENT AND PLAN: 1. Osteomyelitis and abscess of left foot. 2. Sepsis, on admission with MSSA with recheck blood culture negative. 3. Peripheral arterial disease with 100% occlusion of the left anterior tibial artery. 4. Diabetes. 5. Hypertension. 6. Anemia. 7. Hyperlipidemia. 8. Debility. 9. Continue with cefazolin. Echocardiogram was discussed between Dr. De Guzman and Dr. Vela from Cardiology note and appears to be calcification of aortic valve, but cannot rule out endocarditis. PENG most likely will not change the course of treatment and would continue with as planned for treat as endocarditis and osteomyelitis. The patient tells me that he is going to have another angiogram today. Continue to monitor the patient clinically and follow with the labs. Further management of this patient is based on daily findings for laboratory and physical examination. Discussed with Dr. De Guzman in details. Please refer to chart for more information. Dictated by Moises Berrios PA-C (Al) MD MARBELLA Argueta/JAH /[id number]
[2020-02-16 12:03] VITALS: BP 152/76
[2020-02-16] MEDS ORDERED: HEPARIN SOD (PORCINE) 1000 UNIT/ML 30ML ONE (14:43)
[2020-02-16] MEDS ORDERED: VERAPAMIL HCL 2.5 MG/ML 2 ML VIAL ONE (14:43)
[2020-02-16] MEDS ORDERED: FENTANYL CITRATE/PF 100MCG/2 ML INJ ONE (14:44)
[2020-02-16] MEDS ORDERED: MIDAZOLAM HCL 2 MG/2 ML VIAL ONE ×2 (14:44→16:02)
[2020-02-16] MEDS ORDERED: SODIUM CHLORIDE 0.9% 1000ML 1,000 ML ONE ×2 (14:45→15:40)
[2020-02-16] MEDS ORDERED: HEPARIN SOD/SOD CHLORIDE 2,000 ML ONE (14:45)
[2020-02-16] MEDS ORDERED: IOPAMIDOL 300MG/ML 100 ML INFUS..BTL IV ONE (14:45)
[2020-02-16] MEDS ORDERED: NITROGLYCERIN/D5W 200 MCG/ML 250 ML ONE (14:45)
[2020-02-16] MEDS ORDERED: LIDOCAINE HCL 2% LOCAL 20 ML VIAL ONE (14:45)
--- NOTE | 2020-02-16 14:49 | Progress Note ---
DATE: 02/16/2020 SUBJECTIVE: The patient at bedside, doing better, decreased discomfort. Denying any history of fever, chills, nausea, or vomiting. Has not been spiking a fever since yesterday. OBJECTIVE: VITAL SIGNS: Afebrile, pulse 84, respirations 18, blood pressure 146/81, and O2 saturation at 96%. EXTREMITIES: Ulcerations to the left lower extremity starting to improve. Some granulation tissue noted down to extensor longus tendons lateral aspect left foot, tracking down to bone to the left heel with some drainage still present to the medial and lateral aspect of the talotibial joint with serosanguinous drainage on this day. Decreased swelling and decreased cellulitis of the left foot. There is still moderate amount of swelling when compared to contralateral side. LABORATORY DATA: Labs show white blood cell count of 8.08, hemoglobin 8.2 with a platelet count of 555. ASSESSMENT: Possible osteomyelitis with multiple grade 3 and grade 4 ulcerations with cellulitis and peripheral arterial disease. PLAN: The patient will be having an angioplasty to the anterior tibial artery and dorsalis pedis today per Dr. Mitchell. Dressing was changed with Santyl followed by diluted wet-to-dry Betadine. We will continue offloading, continue IV antibiotics, continue to treat conservatively for now. CHAPARRO Ng/JAH /[id number]
--- NOTE | 2020-02-16 14:50 | NUR ---
To section laborer for procedure.
[2020-02-16] MEDS ORDERED: CLOPIDOGREL BISULFATE 75 MG TAB ONE (16:54)
--- NOTE | 2020-02-16 17:00 | NUR ---
The pt. returned from flower shop laborer/designer s/p angiogram with interventions. bp 156/85 97.4 81 17 and o2 sat 97%. There is a clean and dry and the puncture site top of left foot shows no drainage.
--- NOTE | 2020-02-16 17:15 | Operative Report ---
DATE OF PROCEDURE: SURGEON: Joe Mitchell DO PROCEDURES PERFORMED: 1. Conscious sedation, 60 minutes. 2. Ultrasound-guided arterial access of the left dorsalis pedis artery. 3. Unilateral extremity angiography. 4. Second-order peripheral angiography of the left lower extremity via retrograde approach. 5. Orbital atherectomy and percutaneous transluminal angioplasty of the left anterior tibial artery. PREPROCEDURE DIAGNOSIS: Diabetic foot wound with peripheral arterial disease. POSTPROCEDURE DIAGNOSIS: Diabetic foot wound with peripheral arterial disease. ESTIMATED BLOOD LOSS: Less than 20 mL. SPECIMENS REMOVED: None. PROCEDURE IN DETAIL: After informed consent was obtained, the patient was brought to the cardiac catheterization laboratory in a fasting and nonsedated state. Bilateral groins were prepped and draped in usual sterile fashion. His left anterior foot was prepped and draped in usual sterile fashion. A 2% lidocaine was infiltrated over the left anterior foot for local anesthesia. The patient received fentanyl and midazolam for 60 minutes, administered by the senior cytogenetics laboratory director nurse. His neurologic and physiologic status was monitored by myself in the senior cytogenetics laboratory director staff. Next, using ultrasound guidance, the left dorsalis pedis artery was accessed via the modified Seldinger technique with a micropuncture catheter and a 5/6 slender sheath was placed. Next, selective angiography confirmed 100% occluded left anterior tibial artery with patent peroneal and posterior tibial arteries. Next, I crossed the lesion with a Seeker microcatheter and a whisper wire. The wire was removed and second order peripheral angiography of the left lower extremity confirmed intraluminal position in the femoral artery. Next, a Viper wire was exchanged out and I performed multiple runs of orbital atherectomy of the left anterior tibial artery. Next, the anterior tibial was ballooned with a 3 mm angioplasty balloon. Final angiography confirmed excellent results with patency of the entire left anterior tibial artery. Hemostasis was achieved via manual pressure. The patient tolerated the procedure well with no immediate complications and was transferred to his room in stable condition. IMPRESSION: Severe peripheral arterial disease, status post percutaneous transluminal angioplasty of the left anterior tibial artery. Joe Mitchell DO BM/MODL /[id number]
[2020-02-16] MEDS: FERROUS SULFATE 325 MG TAB PO SCH (17:55)
--- NOTE | 2020-02-16 19:15 | Progress Note ---
DATE: Cardiology Progress Note SUBJECTIVE: The patient is feeling better. Denies chest pain, shortness of breath. Reports mild foot pain. OBJECTIVE: VITAL SIGNS: Temperature is 98.1, heart rate is 84, respirations are 19, blood pressure is 152/76, and oxygen saturation 98% on room air. GENERAL: Well appearing, well built, no apparent distress. CARDIOVASCULAR: Regular rate and rhythm. LUNGS: Clear to auscultation. ABDOMEN: Soft, nontender, nondistended. EXTREMITIES: Left foot wound is wrapped and dressed. LABORATORY DATA: Reviewed. Hemoglobin 8.2. Creatinine is 0.79. CARDIOVASCULAR MEDICATIONS: Reviewed. IMAGING DATA: Peripheral angiography today revealed 100% occluded left anterior tibial and this underwent successful orbital atherectomy and balloon angioplasty via retrograde approach. IMPRESSION: 1. Diabetic foot wound. 2. Peripheral artery disease. 3. Hypertension. 4. Hyperlipidemia. 5. Diabetes mellitus. RECOMMENDATIONS: The patient underwent successful atherectomy and angioplasty of the left anterior tibial artery via pedal approach. All three runoff vessels are patent. This should help with wound healing. Continue antibiotics per Infectious Disease. Continue local wound care and debridement per Podiatry. Continue all current cardiovascular medications with the addition of clopidogrel. DO XIMENA Perez/MODL /[id number]
[2020-02-16 20:00] VITALS: BP 129/75
[2020-02-16] MEDS: INSULIN GLARGINE 100 UNITS/ML VIAL SQ SCH (21:00)
--- NOTE | 2020-02-16 21:30 | NUR ---
Received nursing shift report from charge nurse. Pt alert and oriented. Call light within reach.
[2020-02-17] VITALS (10 sets, daily range): BP systolic 129–154; BP diastolic 66–83
[2020-02-17] MEDS: ACETAMINOPHEN 325 MG TAB PO PRN
[2020-02-17] MEDS: CEFAZOLIN SOD 1 GM/NS 50ML 50 ML IV SCH ×3 (06:00→21:18)
--- NOTE | 2020-02-17 06:25 | NUR ---
Pt sitting up in bed, denies pain at this time. No acute distress noted. Blood drawn from right PICC x2, Pt tolerated well.
[2020-02-17 06:43] LABS: BASOPHILS % 0.6 % (0.0-1.0); EOSINOPHILS # (AUTO) 0.1 (0.0-0.4); EOSINOPHILS % 1.5 % (0.0-6.0); HEMATOCRIT 27.8 % (38.2-49.6); HEMOGLOBIN 8.2 g/dL (14.0-18.0); LYMPHOCYTES # (AUTO) 1.7 (1.0-3.2); LYMPHOCYTES % 24.5 % (18.0-39.1); MEAN CORPUSCULAR HEMOGLOBIN 25.3 pg (28-32); MEAN CORPUSCULAR HGB CONC 29.5 g/dL (31-35); MEAN CORPUSCULAR VOLUME 85.8 fL (81-99); MONOCYTES # (AUTO) 0.5 (0.2-0.8); MONOCYTES % 7.2 % (4.4-11.3); NEUTROPHILS # (AUTO) 4.5 (2.1-6.9); NEUTROPHILS % 65.5 % (38.7-80.0); PLATELET COUNT 566 x10e3/uL (140-360); RED BLOOD COUNT 3.24 x10e6/uL (4.3-5.7); RED CELL DISTRIBUTION WIDTH 16.9 % (11.7-14.4)
--- NOTE | 2020-02-17 07:00 | NUR ---
change of shift report received from night club manager nurse; pt sleeping comfortably, easily aroused. no signs of distress. no complaints at this time. will continue to monitor.
[2020-02-17 07:08] LABS: ALANINE AMINOTRANSFERASE 26 IU/L (0-55); ALBUMIN 1.6 g/dL (3.5-5.0); ALBUMIN/GLOBULIN RATIO 0.3 (0.8-2.0); ALKALINE PHOSPHATASE 488 IU/L (40-150); ANION GAP 10.6 mmol/L (8-16); BLOOD UREA NITROGEN 10 mg/dL (7-26); BUN/CREATININE RATIO 13 (6-25); CALCIUM 8.5 mg/dL (8.4-10.2); CARBON DIOXIDE 26 mmol/L (22-29); CHLORIDE 101 mmol/L (98-107); CREATININE, SERUM 0.78 mg/dL (0.72-1.25); EST GLOMERULAR FILTRATION RATE > 60 ML/MIN (60-); GLUCOSE 301 mg/dL (74-118); POTASSIUM 4.6 mmol/L (3.5-5.1); SODIUM 133 mmol/L (136-145)
[2020-02-17] MEDS: INSULIN ASPART 70/30 100 UNITS/ML VIAL SC SCH ×2 (08:15→17:45)
[2020-02-17] MEDS: INSULIN LISPRO 100 UNIT/1 ML 3ML VIAL SQ SCH ×4 (08:15→21:22)
[2020-02-17] MEDS: OYST-CAL-D 500MG TABLET PO SCH ×2 (09:38→17:44)
[2020-02-17] MEDS: ASCORBIC ACID 500 MG TAB PO SCH ×2 (09:38→17:44)
[2020-02-17] MEDS: MULTIVITAMINS/MINERALS TAB PO SCH (09:38)
[2020-02-17] MEDS: ZINC SULFATE 220 MG CAP PO SCH (09:39)
[2020-02-17] MEDS: MAGNESIUM OXIDE 400 MG TAB PO SCH ×2 (09:39→17:44)
[2020-02-17] MEDS: LOSARTAN POTASSIUM 100 MG TAB PO SCH (09:40)
[2020-02-17] MEDS: COLLAGENASE 5 GM TUBE TOP SCH (09:40)
[2020-02-17] MEDS: ATORVASTATIN 20 MG TAB PO SCH (09:40)
--- NOTE | 2020-02-17 17:30 | Consultation ---
DATE OF CONSULTATION: 02/17/2020 SUBJECTIVE: The patient seen at bedside, doing better since he had an angioplasty done to the anterior tibial artery per Dr. Mitchell. He is able to move his foot better. Denies any history of fever, chills, nausea, or vomiting. OBJECTIVE: VITALS: Afebrile, pulse 85, respirations 18, blood pressure 149/83, O2 saturation 98%. LABORATORY DATA: Labs show white blood cell count of 6.81, hemoglobin 8.2, hematocrit 27.8 with a platelet count of 566. Blood glucose of 100. Cellulitis noted to the right heel, which necrosis tracking down to bone. Some purulent drainage noted to the medial and lateral aspect of the right talotibial joint with ulceration dorsal lateral aspect of the left foot, getting better, measuring 2.5 to 3 cm in diameter. Ulcer to the plantar aspect right heel more than 5 to 6 cm in diameter with ulceration forefoot plantar aspect of the left foot less than 2.5 cm in diameter down to tendon, bone, and subcutaneous tissue respectively. ASSESSMENT: Grade 4, 3, and 2 ulcerations, left foot with cellulitis and diabetic neuropathy. PLAN: Sharp excisional debridement of all ulcers were carried down to bone, muscle, and subcutaneous tissue respectively. There is a good viable bleeding tissue achieved. Still some drainage was noted, but negative foul smell. Started to get a little bit more granulation tissue with decreased swelling. We will treat conservatively with serial debridements, IV antibiotics. The patient seemed to be responding, but slow secondary to the spreading of the infection through different foot compartments including deep compartments of the foot. CHAPARRO Ng/JAH /[id number]
[2020-02-17] MEDS: FERROUS SULFATE 325 MG TAB PO SCH (17:44)
--- NOTE | 2020-02-17 19:00 | NUR ---
RECEIVED PATIENT IN BEDSIDE SHIFT REPORT. NO PAIN REPORTED. NO S&S OF DISTRESS NOTED. BED LOCKED IN LOWEST POSITION, SIDE RAILS UPX2, CALL LIGHT IN REACH.
--- NOTE | 2020-02-17 20:05 | Progress Note ---
DATE: SUBJECTIVE: Mr. Troy is feeling better. There is no new complaint. He underwent debridement again by Dr. Otto. The patient is slowly improving. REVIEW OF SYSTEMS: Otherwise unremarkable. PHYSICAL EXAMINATION: GENERAL: He is currently alert, oriented, does not seem in acute distress. VITAL SIGNS: Stable, afebrile. HEENT: He is not icteric. NECK: Supple. CHEST: Clear. HEART: S1 and S2. ABDOMEN: Soft. Bowel sounds present. No tenderness. EXTREMITIES: Left foot, less erythema and edema. IMPRESSION: 1. Sepsis on admission, Staphylococcus aureus methicillin sensitive. I discussed with Cardiology. There is no evidence of endocarditis. Abscess of the foot has been followed by Dr. Otto, doing multiple debridements. Cellulitis of the foot seen better. The plan is eight weeks of IV antibiotic for osteomyelitis. Again, I warned the patient if this fails, he may end up with awhne-eff-[id number] amputation. 2. Anemia of chronic disease. 3. Diabetes with neuropathy. 4. Malnutrition. 5. We will need PICC line, 8 weeks of IV cefazolin as ordered. Weekly CBC and weekly Chem panel. MD MILLIE Argueta/MODL /[id number]
[2020-02-17] MEDS: INSULIN GLARGINE 100 UNITS/ML VIAL SQ SCH (21:18)
[2020-02-18] VITALS (7 sets, daily range): BP systolic 115–146; BP diastolic 64–83
[2020-02-18] MEDS: CEFAZOLIN SOD 1 GM/NS 50ML 50 ML IV SCH ×3 (05:39→21:23)
[2020-02-18 06:23] LABS: BASOPHILS % 0.5 % (0.0-1.0); EOSINOPHILS # (AUTO) 0.1 (0.0-0.4); EOSINOPHILS % 0.9 % (0.0-6.0); HEMATOCRIT 27.9 % (38.2-49.6); HEMOGLOBIN 8.3 g/dL (14.0-18.0); LYMPHOCYTES # (AUTO) 1.8 (1.0-3.2); LYMPHOCYTES % 24.4 % (18.0-39.1); MEAN CORPUSCULAR HEMOGLOBIN 25.2 pg (28-32); MEAN CORPUSCULAR HGB CONC 29.7 g/dL (31-35); MEAN CORPUSCULAR VOLUME 84.8 fL (81-99); MONOCYTES # (AUTO) 0.6 (0.2-0.8); MONOCYTES % 7.8 % (4.4-11.3); NEUTROPHILS # (AUTO) 4.9 (2.1-6.9); NEUTROPHILS % 65.7 % (38.7-80.0); PLATELET COUNT 592 x10e3/uL (140-360); RED BLOOD COUNT 3.29 x10e6/uL (4.3-5.7); RED CELL DISTRIBUTION WIDTH 16.8 % (11.7-14.4)
[2020-02-18] MEDS: INSULIN LISPRO 100 UNIT/1 ML 3ML VIAL SQ SCH ×4 (07:30→20:20)
[2020-02-18 07:33] LABS: ALANINE AMINOTRANSFERASE 21 IU/L (0-55); ALBUMIN 1.8 g/dL (3.5-5.0); ALBUMIN/GLOBULIN RATIO 0.3 (0.8-2.0); ALKALINE PHOSPHATASE 407 IU/L (40-150); ANION GAP 12.2 mmol/L (8-16); BLOOD UREA NITROGEN 8 mg/dL (7-26); BUN/CREATININE RATIO 12 (6-25); CALCIUM 8.7 mg/dL (8.4-10.2); CARBON DIOXIDE 25 mmol/L (22-29); CHLORIDE 105 mmol/L (98-107); CREATININE, SERUM 0.68 mg/dL (0.72-1.25); EST GLOMERULAR FILTRATION RATE > 60 ML/MIN (60-); GLUCOSE 108 mg/dL (74-118); POTASSIUM 4.2 mmol/L (3.5-5.1); SODIUM 138 mmol/L (136-145)
[2020-02-18] MEDS: INSULIN ASPART 70/30 100 UNITS/ML VIAL SC SCH ×2 (08:00→16:47)
[2020-02-18] MEDS: COLLAGENASE 5 GM TUBE TOP SCH (09:09)
--- NOTE | 2020-02-18 09:45 | NUR ---
MULTIPLE CALLS MADE TO PHARMACY. [facility] CURRENTLY UNAVAILABLE FOR ADMINISTRATION. AWAITING DELIVERY OF MEDICATION FROM [facility].
[2020-02-18] MEDS: ATORVASTATIN 20 MG TAB PO SCH (10:37)
[2020-02-18] MEDS: MULTIVITAMINS/MINERALS TAB PO SCH (10:37)
[2020-02-18] MEDS: MAGNESIUM OXIDE 400 MG TAB PO SCH ×2 (10:37→16:41)
[2020-02-18] MEDS: ASCORBIC ACID 500 MG TAB PO SCH ×2 (10:37→16:41)
[2020-02-18] MEDS: ZINC SULFATE 220 MG CAP PO SCH (10:37)
[2020-02-18] MEDS: OYST-CAL-D 500MG TABLET PO SCH ×2 (10:37→16:41)
[2020-02-18] MEDS: LOSARTAN POTASSIUM 100 MG TAB PO SCH (10:38)
[2020-02-18] MEDS: ACETAMINOPHEN 325 MG TAB PO PRN (11:20)
--- NOTE | 2020-02-18 11:57 | Progress Note ---
DATE: 02/18/2020 SUBJECTIVE: The patient at bedside, doing somewhat better, better range of motion to the left lower extremity. He is denying history of fever, chills, nausea, or vomiting. He has not spiked a fever for two days. OBJECTIVE: VITAL SIGNS: Afebrile, pulse rate 83, respirations 18, blood pressure 125/66, O2 saturation 99%. LABORATORY DATA: Labs show white blood cell count of 7.4, hemoglobin 8.3 with a platelet count of 592. Ulcerations to the plantar aspect of the left heel, dorsal lateral aspect of the left foot and medial lateral aspect of talotibial joints that are doing somewhat better, some granulation tissue noted, still some drainage but negative foul smell. Cellulitis seems to be resolving with decreased swelling to the left foot. ASSESSMENT: Grade 4 ulcer, possible osteomyelitis, status post angioplasty anterior tibial artery with cellulitis and diabetic neuropathy. PLAN: We will continue IV antibiotics. Dressing was changed with Santyl followed by diluted wet-to-dry Betadine. Continue offloading. We will continue to follow and treat conservatively. The patient will need at least 4 to 6 more weeks of IV antibiotics. CHAPARRO Ng/JAH /[id number]
--- NOTE | 2020-02-18 15:08 | NUR ---
INFECTIOUS DISEASE PROGRESS NOTE DR. SANCHEZ SUBJECTIVE: Mr. Troy is feeling better. There is no new complaint. He underwent debridement again by Dr. Otto. The patient is slowly improving. REVIEW OF SYSTEMS: Otherwise unremarkable. PHYSICAL EXAMINATION: GENERAL: He is currently alert, oriented, does not seem in acute distress. VITAL SIGNS: Stable, afebrile. HEENT: He is not icteric. NECK: Supple. CHEST: Clear. HEART: S1 and S2. ABDOMEN: Soft. Bowel sounds present. No tenderness. EXTREMITIES: Left foot, less erythema and edema. IMPRESSION & PLAN: 1. Bacteremia- Staphylococcus aureus methicillin sensitive. -discussed with Cardiology. There is no evidence of endocarditis. 2. Abscess of the foot -followed by Dr. Otto, doing multiple debridements. 3. Osteomyelitis of the foot The plan is eight weeks of IV antibiotic for osteomyelitis. Again, I warned the patient if this fails, he may end up with jarkb-tzi-xumt amputation. 4. Anemia of chronic disease. 5. Diabetes with neuropathy. 6. Malnutrition. We will need PICC line, 8 weeks of IV cefazolin as ordered. Insurance verification in process in Dr. Sanchez's infusion center. I will have an answer for you in the morning. Weekly CBC and weekly, Chem panel.
[2020-02-18] MEDS: FERROUS SULFATE 325 MG TAB PO SCH (16:41)
--- NOTE | 2020-02-18 19:00 | NUR ---
RECEIVED PATIENT IN BEDSIDE SHIFT REPORT. PATIENT RESTING IN BED AT THIS TIME. NO PAIN REPORTED. NO S&S OF DISTRESS NOTED. DRESSING TO LLE C/D/I, RECENTLY CHANGED BY PHYSICIAN AND DAY SHIFT NURSE. BED LOCKED IN LOWEST POSITION, SIDE RAILS UPX2, CALL LIGHT IN REACH.
--- NOTE | 2020-02-18 19:00 | NUR ---
change of shift report given to PM nurse. pt in stable condition.
[2020-02-18] MEDS: INSULIN GLARGINE 100 UNITS/ML VIAL SQ SCH (21:24)
[2020-02-19] VITALS (8 sets, daily range): BP systolic 123–150; BP diastolic 73–84
[2020-02-19] MEDS: CEFAZOLIN SOD 1 GM/NS 50ML 50 ML IV SCH ×3 (05:36→21:01)
[2020-02-19 05:59] LABS: BASOPHILS # (AUTO) 0.1 (0.0-0.1); BASOPHILS % 1.4 % (0.0-1.0); EOSINOPHILS # (AUTO) 0.1 (0.0-0.4); EOSINOPHILS % 1.7 % (0.0-6.0); HEMATOCRIT 27.5 % (38.2-49.6); HEMOGLOBIN 8.3 g/dL (14.0-18.0); LYMPHOCYTES # (AUTO) 1.8 (1.0-3.2); LYMPHOCYTES % 30.3 % (18.0-39.1); MEAN CORPUSCULAR HEMOGLOBIN 25.9 pg (28-32); MEAN CORPUSCULAR HGB CONC 30.2 g/dL (31-35); MEAN CORPUSCULAR VOLUME 85.9 fL (81-99); MONOCYTES # (AUTO) 0.5 (0.2-0.8); MONOCYTES % 7.6 % (4.4-11.3); NEUTROPHILS # (AUTO) 3.4 (2.1-6.9); NEUTROPHILS % 58.3 % (38.7-80.0); PLATELET COUNT 563 x10e3/uL (140-360); RED CELL DISTRIBUTION WIDTH 16.6 % (11.7-14.4)
[2020-02-19 06:31] LABS: ALANINE AMINOTRANSFERASE 18 IU/L (0-55); ALBUMIN 1.7 g/dL (3.5-5.0); ALBUMIN/GLOBULIN RATIO 0.3 (0.8-2.0); ALKALINE PHOSPHATASE 363 IU/L (40-150); ANION GAP 10.5 mmol/L (8-16); BLOOD UREA NITROGEN 12 mg/dL (7-26); BUN/CREATININE RATIO 16 (6-25); CALCIUM 8.7 mg/dL (8.4-10.2); CARBON DIOXIDE 27 mmol/L (22-29); CHLORIDE 102 mmol/L (98-107); CREATININE, SERUM 0.77 mg/dL (0.72-1.25); EST GLOMERULAR FILTRATION RATE > 60 ML/MIN (60-); GLUCOSE 325 mg/dL (74-118); POTASSIUM 4.5 mmol/L (3.5-5.1); SODIUM 135 mmol/L (136-145)
[2020-02-19] MEDS: INSULIN ASPART 70/30 100 UNITS/ML VIAL SC SCH ×2 (09:36→16:25)
[2020-02-19] MEDS: INSULIN LISPRO 100 UNIT/1 ML 3ML VIAL SQ SCH ×4 (09:37→20:59)
[2020-02-19] MEDS: COLLAGENASE OINTMENT 30 GM TUBE TOP SCH (09:41)
[2020-02-19] MEDS: ATORVASTATIN 20 MG TAB PO SCH (09:42)
[2020-02-19] MEDS: LOSARTAN POTASSIUM 100 MG TAB PO SCH (09:42)
[2020-02-19] MEDS: ASCORBIC ACID 500 MG TAB PO SCH ×2 (09:42→16:28)
[2020-02-19] MEDS: OYST-CAL-D 500MG TABLET PO SCH ×2 (09:42→16:28)
[2020-02-19] MEDS: MULTIVITAMINS/MINERALS TAB PO SCH (09:42)
[2020-02-19] MEDS: ZINC SULFATE 220 MG CAP PO SCH (09:42)
[2020-02-19] MEDS: MAGNESIUM OXIDE 400 MG TAB PO SCH ×2 (09:42→16:28)
--- NOTE | 2020-02-19 10:37 | Progress Note ---
DATE: 02/19/2020 SUBJECTIVE: The patient is seen at bedside, doing better. Relates he feels better since the angioplasty was performed in anterior tibial artery. OBJECTIVE: VITAL SIGNS: Afebrile, pulse rate 90, respirations 16, blood pressure 149/84, and O2 saturation 97%. EXTREMITIES: Ulcerations to the left lower extremity healing. Still some drainage noted to the ulceration to the left heel. Negative foul smell. Ulcerations to the lateral aspect left foot also getting a little bit better. Some granulation tissue noted. Decreased cellulitis with decreased edema. LABORATORY DATA: Show white blood cell count of 5.9, hemoglobin 8.3 with a platelet count of 563. Blood glucose of 319. INR of 1.07. ASSESSMENT: Multiple grade 3/4 ulceration with possible osteomyelitis, diabetic neuropathy. PLAN: We will continue local wound care with Santyl, followed by diluted wet-to-dry Betadine. Continue b.i.d. dressing changes. Continue IV antibiotics. Continue offloading. We will continue to follow. The patient may be going home by Wednesday of this week. We will need IV antibiotics for at least 4 more weeks. CHAPARRO Ng/JAH /[id number]
--- NOTE | 2020-02-19 11:38 | Progress Note ---
DATE: SUBJECTIVE: The patient is seen and evaluated. Available labs and notes reviewed. Discussed with the patient. REVIEW OF SYSTEMS: No nausea, vomiting, fever, chills, chest pain, shortness of breath, headache, rash, or dysuria. No pain on the left foot. PHYSICAL EXAMINATION: VITAL SIGNS: Temperature 98.9, pulse 90, respirations 16, and blood pressure 149/84. GENERAL: Alert and oriented. No active distress. CV: S1 and S2. CHEST: Equal expansion. Clear to auscultation. No acute distress. ABDOMEN: Soft and nontender. No distention. HEENT: Moist. No pallor. No JVD. EXTREMITIES: Left foot with edema. Calcaneus/heel wound with yellow slough tissue. At the bottom, also there is small opening on the lateral side of the calcaneus with no drainage noted. He also has a wound on the lateral aspect of the foot, which is deep. No pus drainage noted. MEDICATIONS: Medication list reviewed and from Infectious Disease point of view, the patient is on cefazolin. LABORATORY STUDIES: White count of 5.90, hemoglobin 8.3, and platelet 563. Sodium 135, potassium 4.5, and creatinine 0.77. Serology; coronavirus PCR 02/08/2020, not detected. MICROBIOLOGY: Recheck blood culture 02/12/2020, negative. ASSESSMENT AND PLAN: 1. Sepsis, on admission with methicillin-sensitive Staphylococcus aureus. The patient is on cefazolin. No evidence of endocarditis. 2. Abscess of the left foot. 3. Wounds of left foot. 4. Diabetes mellitus. 5. Diabetic neuropathy. 6. Anemia. 7. Malnutrition. 8. Debility. 9. Plan is to keep 8 weeks of IV antibiotics. Antibiotic insurance verification in progress with Dr. De Guzman's office. Continue with wound care. Monitor the patient clinically and follow with the labs. The patient is status post successful atherectomy and angioplasty of the left anterior tibial artery via pedal approach with all three runoff vessels patent per Cardiology note. Overall, remains with guarded prognosis. Discussed with Dr. De Guzman. Please refer to chart for more information. Dictated by Moises Berrios PA-C (Al) Hira De Guzman MD /MODL /[id number]
--- NOTE | 2020-02-19 12:10 | NUR ---
Pt. expressed no spiritual or emotional concerns at this time. Pt identified as Christianity. Flavoring Machine Operator YOLY Bond, provided hospitality, prayer and information on how to reach grease and tallow pumper, if needed. No need to follow at this time. TAMI HILL Flavoring Machine Operator Spiritual Care Department O: [phone]
--- NOTE | 2020-02-19 14:25 | NUR ---
CALL TO PT IN ROOM TO DISCUSS HOME HEALTH ORDER FOR SN TO PROVIDE WOUND CARE. PT STATES HE HAS NEVER HAD HH IN THE PAST; THIS IS ALL NEW. NO DME. PROVIDED CHOICES; [facility], [facility]. STATES [facility]; [facility]. PT STATES HE WOULD LIKE TO EVENTUALLY RETURN TO WORK, BUT WOULD LIKE TO GO HOME. EXPLAINED THE HH NURSE WILL BE TEACHING WOUND CARE AND IT WOULD BE HELPFUL IF HE HAD A FAMILY MEMBER PRESENT TO LEARN ALSO. STATES HIS CHILDREN LIVE NEAR HIM AND ARE ALWAYS AVAILABLE. STATES HIS EMERGENCY CONTACT IS HIS DTR, TINA @ [phone]. STATES HE WILL PROBABLY WILL BE DOING THE WOUND CARE HIMSELF, BUT WILL HAVE HIS DTR THERE IF POSSIBLE. REFERRAL WAS [facility]XED TO [facility] @ OFF: [phone] / FAX: [phone]
[2020-02-19] MEDS: FERROUS SULFATE 325 MG TAB PO SCH (16:28)
--- NOTE | 2020-02-19 19:15 | NUR ---
patient received awake, alert, lying quietly in bed. no c/o pain noted. dressing to left foot c,d,i. pm assessment complete. patient instructed to call for assistance when needed.
[2020-02-19] MEDS: INSULIN GLARGINE 100 UNITS/ML VIAL SQ SCH (21:00)
[2020-02-20] VITALS: BP 133/81
[2020-02-20 04:00] VITALS: BP 124/84
[2020-02-20] MEDS: CEFAZOLIN SOD 1 GM/NS 50ML 50 ML IV SCH ×2 (05:35→13:00)
[2020-02-20 07:48] VITALS: BP 142/85
[2020-02-20 07:53] VITALS: BP 142/85
[2020-02-20] MEDS: INSULIN LISPRO 100 UNIT/1 ML 3ML VIAL SQ SCH ×3 (07:55→15:53)
[2020-02-20] MEDS: INSULIN ASPART 70/30 100 UNITS/ML VIAL SC SCH ×2 (07:55→15:53)
[2020-02-20] MEDS: ASCORBIC ACID 500 MG TAB PO SCH ×2 (08:07→15:57)
[2020-02-20] MEDS: MAGNESIUM OXIDE 400 MG TAB PO SCH ×2 (08:07→15:57)
[2020-02-20] MEDS: ZINC SULFATE 220 MG CAP PO SCH (08:07)
[2020-02-20] MEDS: MULTIVITAMINS/MINERALS TAB PO SCH (08:07)
[2020-02-20] MEDS: COLLAGENASE OINTMENT 30 GM TUBE TOP SCH (08:07)
[2020-02-20] MEDS: LOSARTAN POTASSIUM 100 MG TAB PO SCH (08:07)
[2020-02-20] MEDS: ATORVASTATIN 20 MG TAB PO SCH (08:07)
[2020-02-20] MEDS: OYST-CAL-D 500MG TABLET PO SCH ×2 (08:07→15:57)
[2020-02-20 11:14] VITALS: BP 119/80
--- NOTE | 2020-02-20 11:48 | Progress Note ---
DATE: SUBJECTIVE: The patient is seen and evaluated. Available labs and notes reviewed. Discussed with the attending team. Discussed with the nurse. Discharge planing as well as the antibiotics discussed with both of them. REVIEW OF SYSTEMS: The patient is comfortable in bed. No nausea, vomiting, fever, chills, chest pain, or shortness of breath. He states that he has improved range of motion on his left ankle and pain is well controlled. Otherwise, no complaints. PHYSICAL EXAMINATION: VITAL SIGNS: Temperature is 98.2, pulse 91, respirations 16, and blood pressure 142/85. MEDICATIONS: Medication list reviewed. From Infectious Disease point of view, the patient is on cefazolin. LABORATORY STUDIES: White count of 5.9 with a hemoglobin of 8.3, and platelet 563. No new CBC or BMP from today. Last creatinine level was 0.77 on 02/19/2020. MICROBIOLOGY: No new microbiology studies available. Blood cultures 02/11 is negative. Previous blood culture was MSSA. Wound culture showed Enterococcus faecalis, not VRE and MSSA. IMAGING: No new radiology studies available. PHYSICAL EXAMINATION: GENERAL: Alert and oriented x3. No acute distress. CV: S1-S2. CHEST: Equal expansion. Clear to auscultation. No acute distress. ABDOMEN: Soft. No tender. No distention. HEENT: Moist. No pallor. No JVD. EXTREMITIES: Left foot dressed, on local care. The patient gets daily dressing change by Dr. Otto. ASSESSMENT AND PLAN: 1. Sepsis on admission with methicillin-susceptible Staphylococcus aureus. Continue with cefazolin for total of eight weeks. No evidence of endocarditis. The patient is set up with IV antibiotics at home through Dr. De Guzman's office, pending authorization. This was discussed with the nurse and attending team. 2. Left foot abscess. 3. Left foot wound. 4. Diabetes mellitus. 5. Diabetic neuropathy. 6. Debility. 7. Anemia. 8. Malnutrition. Continue with antibiotics. Continue with wound care. The patient gets wet-to-dry from Dr. Otto, Podiatry. Wound exchange daily. The patient is status post successful atherectomy and angioplasty of the left anterior tibial artery via pedal approach with all three runoff vessels patent from a cardiology note. Continue with antibiotic as planned. Further management of this patient is based on daily findings on laboratory and physical examination. Discussed with Dr. De Guzman in details. Dictated by Moises Blackwell) DEEPA Berrios Hira De Guzman MD /MODL /[id number]
--- NOTE | 2020-02-20 12:09 | Consultation ---
DATE OF CONSULTATION: 02/20/2020 SUBJECTIVE: The patient is seen at bedside, doing better. Decreased swelling to the left lower extremity, better range of motion. OBJECTIVE: VITAL SIGNS: Afebrile, pulse rate 91, respirations 16, blood pressure 142/85, and O2 saturation 99%. EXTREMITIES: Ulceration to the left lower extremity, plantarly, healing very slowly, some fibrotic tissue noted tracking down to bone. There is a pocket tracking medial plantarly more than 2 inches long by inserting the finger. Ulceration of lateral aspect left lower extremity showing some granulation tissue. Decreased cellulitis surrounding the medial and lateral talotibial joints with minimal drainage and negative foul smell. LABORATORY DATA: Labs show white blood cell count 5.90 and hemoglobin 8.3. ASSESSMENT: Grade 4 ulcer, possible osteomyelitis, diabetic neuropathy, healing very slowly. PLAN: Dressing was changed. Santyl followed by diluted wet-to-dry Betadine was applied. We will continue IV antibiotics such as cefazolin. Continue offloading. We will continue to follow. The patient may be going home by Wednesday of this week. CHAPARRO Ng/JAH /[id number]
[2020-02-20] MEDS ORDERED: Collagenase TOP (13:52)
[2020-02-20] MEDS ORDERED: DAPTOMYCIN 500mg 10ML 450 MG in SODIUM CHLORIDE 0.9% 100 ML IV ONE (14:00)
--- NOTE | 2020-02-20 14:39 | NUR ---
HOME HEALTH DISCHARGE NOTE PATIENT ADDRESS WHERE SERVICE WILL BE RECEIVED: [address] [place] [id number] PATIENT CONTACT NUMBER: [phone] NAME OF HOME HEALTH COMPANY: [employer] TELEPHONE/FAX NUMBER OF COMPANY: OFF: [phone] / FAX: [phone] SERVICES TO RECEIVE: SKILLED NURSE EVAL AND TREAT; WOUND CARE ANTICIPATED DATE SERVICES WILL BEGIN: 02/21/2020 Please call the company above if you have not received a call to schedule a home visit within 24 hours of discharge. PT TO RECEIVED IV ANTIBIOTICS AND HAVE WEEKLY LABS DRAWN AT DR. SANCHEZ'S OFFICE INSTRUCTED. Dr. Hira Sanchez [address], [place] [address] [phone]
[2020-02-20 15:25] VITALS: BP 127/80
[2020-02-20] MEDS: FERROUS SULFATE 325 MG TAB PO SCH (15:57)
--- NOTE | 2020-02-20 17:38 | NUR ---
Patient received discharge order from HUMBERTO Fung of Dr. Bhakta after she received a phone call from NIC Meza of [facility]'s office. Patient did a teach back on his wound care, we read back where to get his medication from the pharmacy, where to go to Dr. De Guzman's infusion clinic tomorrow at 11am, and when the home health ([facility]) would be at his house. Patient verbalized understanding. Patient is discharging with his right upper arm PICC. Patient and this narrative writer changed his wound care together so that he completely understood how and when to change it. Patient was discharged with extra supplies as well. Patient had no other issues. Patient was wheeled to care via wheelchair and this narrative writer helped bring his belongings, including his DME: standard walker, to the car in the ER department. He stated he could drive himself home. Patient left at 1720.
--- NOTE | 2020-02-21 02:06 | Discharge Summary ---
ADMISSION DIAGNOSES: Left heel plantar and lateral aspect diabetic foot ulcers, present on admission with sepsis; type 2 diabetes with hyperglycemia; hypertension; hypokalemia; anemia; transaminitis; hyponatremia; hyperlipidemia. DISCHARGE DIAGNOSES: Left heel plantar and lateral aspect diabetic foot ulcers, present on admission with sepsis; type 2 diabetes with hyperglycemia; hypertension; hypokalemia; anemia; transaminitis; hyponatremia; hyperlipidemia; peripheral arterial disease; methicillin-sensitive Staphylococcus aureus bacteremia, present on admission; Staphylococcus aureus and Enterococcus of the left foot wound, present on admission with sepsis; rule out coronavirus disease 2018; rule out gastrointestinal bleed. HISTORY: Hypertension, type 2 diabetes, kidney stones, hyperlipidemia. SURGICAL HISTORY: Left knee surgery. FAMILY HISTORY: The patient's mother and brothers have diabetes. The patient's father had cancer. SOCIAL HISTORY: Noncontributory. HOSPITAL COURSE: A 59-year-old male admits with 3-day duration of worsening left foot ulcers and pain described as a dull ache with no radiation. He states that he was using his stationary bike and noticed that his blisters had broken at the wound site. He went to see his primary care, but was told to go to the emergency department. On admission change, the patient had a foot x-ray that showed soft tissue ulceration along the lateral aspect of the mid foot without underlying osseous injury. The patient then had an MRI of the foot that showed multiple soft tissue ulcerations of the foot, osteomyelitis of the calcaneus, possible multilobulated abscess of the hindfoot with soft tissue gas. Podiatry was consulted. The patient was placed on vancomycin and Zosyn. Wound cultures were collected. ID later changed the antibiotics to cefazolin per wound culture. The patient had blood cultures drawn, that came back positive for Staph. Per Cardiology recommendation, endocarditis could not be ruled out, but due to the long-term antibiotics for the left foot wound, there was no need to do a PENG as he would already be on antibiotics for the wound, which would cover him for bacteremia as well. Podiatry did multiple bedside debridements at bedside. Arterial Doppler showed PAD, so Cardiology was consulted. The patient underwent 2 angiographies of the left lower extremity. He had percutaneous transluminal angioplasty of the left anterior tibial artery, which was successful. The patient's repeat blood cultures were negative starting on 02/12/2020. He will discharge home with a PICC line and IV antibiotics. He was given a dose of Cubicin prior to discharge and will continue his cefazolin [address] De Guzman's office. He was advised to follow up with Dr. Otto twice weekly. He will continue his Santyl diluted Betadine wet-to-dry dressing and home health was arranged. The patient understands discharge instructions and agrees to plan. Vital signs stable, the patient is afebrile. Dictated by Antonieta Gaytan NP MD BO Mejia/JAH /[id number]
== END 2020-02-20 17:20 | disposition home health service (06) | DRG 854 ==
LOC: ER 14:25 → ERHOLD 17:10 → MED/SURG3 19:14
PROVIDERS: ADMIT Internal Medicine; ATTEND Internal Medicine
PROC: 02HV33Z Insertion of Infusion Device into Superior Vena Cava, Percutaneous Approach (ICD-10-PCS; 2020-02-09)
PROC: 0LBW0ZZ Excision of Left Foot Tendon, Open Approach (ICD-10-PCS; 2020-02-10)
PROC: 0JBR0ZZ Excision of Left Foot Subcutaneous Tissue and Fascia, Open Approach (ICD-10-PCS; 2020-02-10)
PROC: B41D1ZZ Fluoroscopy of Aorta and Bilateral Lower Extremity Arteries using Low Osmolar Contrast (ICD-10-PCS; 2020-02-13)
PROC: 30243N1 Transfusion of Nonautologous Red Blood Cells into Central Vein, Percutaneous Approach (ICD-10-PCS; 2020-02-13)
PROC: 047Q3ZZ Dilation of Left Anterior Tibial Artery, Percutaneous Approach (ICD-10-PCS; principal; 2020-02-16)
PROC: 04CQ3ZZ Extirpation of Matter from Left Anterior Tibial Artery, Percutaneous Approach (ICD-10-PCS; 2020-02-16)
PROC: 0JBR0ZZ Excision of Left Foot Subcutaneous Tissue and Fascia, Open Approach (ICD-10-PCS; 2020-02-17)
DX: A41.02 Sepsis due to Methicillin resistant Staphylococcus aureus (principal); E87.1 Hypo-osmolality and hyponatremia; D62 Acute posthemorrhagic anemia; L03.116 Cellulitis of left lower limb; L97.825 Non-pressure chronic ulcer of other part of left lower leg with muscle involvement without evidence of necrosis; I38 Endocarditis, valve unspecified; E46 Unspecified protein-calorie malnutrition; M86.8X7 Other osteomyelitis, ankle and foot; E11.622 Type 2 diabetes mellitus with other skin ulcer; E11.65 Type 2 diabetes mellitus with hyperglycemia; E11.51 Type 2 diabetes mellitus with diabetic peripheral angiopathy without gangrene; Z79.4 Long term (current) use of insulin; I70.248 Atherosclerosis of native arteries of left leg with ulceration of other part of lower leg; Z91.14 Patient's other noncompliance with medication regimen; Z11.59 Encounter for screening for other viral diseases; E87.6 Hypokalemia; Z68.21 Body mass index [BMI] 21.0-21.9, adult; M89.772 Major osseous defect, left ankle and foot
CPT/HCPCS: 36247; 36415; 36569; 37228; 37229; 71045; 75630; 75710; 80053; 80061; 80202; 82270; 82550; 82553; 82607; 82728; 82746; 82948; 83036; 83540; 83735; 83880; 84100; 84443; 84466; 84484; 85025; 85610; 85730; 86850; 86900; 86920; 87040; 87071; 87075; 87186; 87205; 87635; 93005; 93306; 93925; 97139; 99152; 99153; 99284; C1724; C1725; C1760; C1769; C1887; J0360; J0690; J0696; J1644; J1815; J2001; J2250; J2543; J2997; J3010; J3370; J3480; J7030; J7050; P9016; Q9967